=== PATIENT | male | born 1960 | race American Indian/Alaskan Native ===

== ENCOUNTER 2021-01-23 19:26 | Inpatient (IN) | payer OTHER ==
[2021-01-23] MEDS ORDERED: ASPIRIN 325 MG TAB PO ONE (21:46)
[2021-01-23] MEDS ORDERED: CLOPIDOGREL 300 MG TAB PO ONE (21:51)
[2021-01-23] MEDS ORDERED: HEPARIN 10,000 UNITS/10 ML VIAL IV ONE ×2 (21:51→23:20)
--- NOTE | 2021-01-23 21:58 | Emergency Department Report ---
ED Chest Pain HPI - General Chief Complaint: Chest Pain Stated Complaint: CHEST PAIN Time Seen by Provider: 01/23/21 21:45 Source: patient Mode of arrival: Ambulatory Limitations: No Limitations - History of Present Illness Initial Comments: 60-year-old male with a past medical history of tobacco use presents to the hospital complaining of chest tightness with radiation down both arms since 11 AM. Tightness started while at rest with associated nausea and lightheadedness. No complaints of shortness of breath or diaphoresis. Patient presented here about 7 PM but left a well home prior to triage. Upon to returning home pain increased to a 7/10 in intensity with pain radiation down the left arm therefore patient returned to the ED for evaluation. Pain is currently rated 4/10 in intensity. Patient states his last stress test was greater than 5 years ago and he has never had a cardiac cath. He denies any past medical history but has not seen a doctor in 1.5 years. He denies family history of CAD before the age of 65. He drinks 2-3 beers daily but denies history of alcohol withdrawal seizures or tremors. He denies illicit drug abuse. He also denies history of PE/DVT, calf tenderness, recent travel, or leg edema. - Related Data Allergies Allergy/AdvReac Type Severity Reaction Status Date / Time No Known Allergies Allergy Verified 01/23/21 22:07 Heart Score - HEART Score History: Moderately suspicious EKG: Non-specific Age: 45-65 Risk factors: 1-2 risk factors Troponin: 1-3x normal limit HEART Score: 5 ED Review of Systems ROS: Stated complaint: CHEST PAIN Other details as noted in HPI Comment: All other systems reviewed and negative ED Past Medical Hx - Past Medical History Hx Hypertension: No - Social History Smoking Status: Current Every Day Smoker Substance Use Type: Alcohol (2-3 beers daily) ED Physical Exam - General Limitations: No Limitations - Other Other exam information: General: No acute distress Head: Atraumatic Eyes: normal appearance ENT: Moist mucous membranes Neck: Normal appearance, no midline tenderness Chest: Clear to auscultation bilaterally, chest wall nontender CV: Regular rate and rhythm Abdomen: Soft, normal bowel sounds, nontender, nondistended, no rebound or guarding Back: Normal inspection Extremity: Normal inspection, full range of motion, no calf tenderness or leg edema Neuro: Alert O x 3, no facial asymmetry, speech clear, no gross motor sensory deficit Psych: Appropriate behavior Skin: No rash, no diaphoresis ED Course Vital Signs 01/23/21 01/23/21 01/23/21 21:44 21:45 22:00 Temperature Pulse Rate 68 70 71 Respiratory 11 L 13 9 L Rate Blood Pressure 174/105 179/106 O2 Sat by Pulse 99 99 99 Oximetry 01/23/21 01/23/21 01/23/21 22:02 22:09 22:15 Temperature Pulse Rate 85 83 80 Respiratory 16 13 Rate Blood Pressure 144/95 152/95 O2 Sat by Pulse 99 98 Oximetry 01/23/21 01/24/21 01/24/21 22:30 00:30 00:53 Temperature 98.6 F Pulse Rate 82 89 Respiratory 9 L Rate Blood Pressure 136/82 161/97 O2 Sat by Pulse 97 Oximetry - Reevaluation(s) Reevaluation #1: 01/23/21 22:19 Patient pain-free after 2 sublingual nitroglycerin with improved systolic blood pressure of 140s. Nitroglycerin drip on hold for recurrent chest pain or recurrent hypertension - Consultations Consultation #1: 01/23/21 21:50 Patient brought back immediately upon EKG review and interview since he had not been completely triage. After my initial evaluation I contacted the cognos consultant Dr Kelley at 9:50 PM who agreed that code STEMI should be called. Patient will receive Plavix 600 mg, heparin bolus, aspirin, and prepped for Orthotics Assistant. Code STEMI initiated. BRET score - Bret Score Age > 65: (0) No Aspirin use within the Past 7 Days: (0) No 3 or more CAD Risk Factors: (0) No 2 or more Angina events in past 24 hrs: (1) Yes Known CAD with more than 50% Stenosis: (0) No Elevated Cardiac Markers: (1) Yes ST Deviation Greater than 0.5mm: (1) Yes BRET Score: 3 ED Medical Decision Making - Lab Data Result diagrams: 01/24/21 00:43 01/23/21 Unknown - EKG Data -: EKG Interpreted by Me EKG shows normal: sinus rhythm, ST-T waves (Mild inferior anterolateral ST elevation) Rate: normal - Radiology Data Radiology results: report reviewed CHEST 1 VIEW 01/23/2021 9:01 PM INDICATION / CLINICAL INFORMATION: Chest Pain. COMPARISON: None available. FINDINGS: SUPPORT DEVICES: None. HEART / MEDIASTINUM: No significant abnormality. LUNGS / PLEURA: No significant pulmonary or pleural abnormality. No pneumothorax. ADDITIONAL FINDINGS: No significant additional findings. IMPRESSION: No acute cardiopulmonary abnormality. - Medical Decision Making 60-year male presents to the hospital with chest pain. Suspect unstable angina/acute coronary syndrome and Orthotics Assistant was activated. Patient received aspirin, Plavix, heparin bolus, and to sublingual nitroglycerin with improvement of blood pressure and chest pain Critical Care Time: Yes Critical care time in (mins) excluding proc time.: 35 Critical care attestation.: If time is entered above; I have spent that time in minutes in the direct care of this critically ill patient, excluding procedure time. ED Disposition Clinical Impression: Acute coronary syndrome, Elevated blood pressure reading, Hyperglycemia, STEMI (ST elevation myocardial infarction) Disposition: DC-[id number] OP ADMIT IP TO THIS HOSP Is pt being admited?: Yes Condition: Stable
[2021-01-23] MEDS: NITROGLYCERIN 0.4 MG TAB SUBL SL PRN ×2 (22:00→22:09)
[2021-01-23] MEDS ORDERED: NITROGLYCERIN DRIP 50 MG/250 ML BOTTLE IV SCH (22:05)
--- NOTE | 2021-01-23 22:06 | XRay Report ---
CHEST 1 VIEW 01/23/2021 9:01 PM INDICATION / CLINICAL INFORMATION: Chest Pain. COMPARISON: None available. FINDINGS: SUPPORT DEVICES: None. HEART / MEDIASTINUM: No significant abnormality. LUNGS / PLEURA: No significant pulmonary or pleural abnormality. No pneumothorax. ADDITIONAL FINDINGS: No significant additional findings. IMPRESSION: No acute cardiopulmonary abnormality. Signer Name: Lloyd Plummer MD Signed: 01/23/2021 10:02 PM Workstation Name: [id number]
[2021-01-23 22:07] LABS: Basophils % (Auto) 0.3 % (0.0-1.8); Eosinophils # (Auto) 0.1 K/mm3 (0.0-0.4); Eosinophils % (Auto) 2.1 % (0.0-4.3); Hematocrit 46.7 % (35.5-45.6); Hemoglobin 15.5 gm/dl (11.8-15.2); Lymphocytes # (Auto) 2.3 K/mm3 (1.2-5.4); Lymphocytes % (Auto) 33.1 % (13.4-35.0); Mean Corpuscular HGB Conc 33 % (32-34); Mean Corpuscular Volume 93 fl (84-94); Monocytes # (Auto) 0.6 K/mm3 (0.0-0.8); Monocytes % (Auto) 7.9 % (0.0-7.3); Platelet Count 206 K/mm3 (140-440); Red Blood Count 5.04 M/mm3 (3.65-5.03); Red Cell Distribution Width 12.4 % (13.2-15.2)
[2021-01-23 22:18] LABS: INR 1.03 (0.87-1.13)
[2021-01-23 22:19] LABS: Partial Thromboplastin Time 35.7 Sec. (24.2-36.6)
[2021-01-23 22:21] LABS: BUN/Creatinine Ratio 12; Blood Urea Nitrogen 12 mg/dL (9-20); Calcium 9.3 mg/dL (8.4-10.2); Hemolysis Index 8
[2021-01-23 22:23] LABS: Creatine Kinase MB 7.4 ng/mL (0.0-4.0)
[2021-01-23] MEDS ORDERED: HEPARIN/NS 5000 UNIT/500ML 1,000 ML IR ONE (22:27)
[2021-01-23] MEDS ORDERED: MIDAZOLAM 2 MG/2 ML INJ ONE (22:28)
[2021-01-23] MEDS ORDERED: fentaNYL 100 MCG/2 ML INJ ONE (22:28)
[2021-01-23] MEDS ORDERED: VERAPAMIL 5 MG/2 ML INJ ONE (22:28)
[2021-01-23] MEDS ORDERED: HEPARIN 10,000 UNITS/10 ML VIAL ONE (22:28)
[2021-01-23] MEDS ORDERED: LIDOCAINE (2%) 20 MG/1 ML VIAL 20 ML MDV INFILTRATI ONE ×2 (22:28→22:54)
[2021-01-23] MEDS ORDERED: TIROFIBAN/NS 12,500 MCG/250 ML BAG IV ONE (22:29)
[2021-01-23] MEDS ORDERED: SODIUM CHLORIDE 0.9% 500 ML 500 ML ONE (22:29)
[2021-01-23] MEDS ORDERED: NITROGLYCERIN SYRINGE 3 ML ONE (22:29)
[2021-01-23 22:41] LABS: Chol/HDL Ratio 5.17 %
[2021-01-23] MEDS ORDERED: fentaNYL 100 MCG/2 ML INJ IV ONE (22:53)
[2021-01-23] MEDS ORDERED: MIDAZOLAM 2 MG/2 ML INJ IV ONE (22:53)
[2021-01-23] MEDS ORDERED: HEPARIN 10,000 UNIT/1 ML VIAL IV ONE (23:01)
[2021-01-23] MEDS ORDERED: TIROFIBAN 12.5 MG/250 ML BOLUS (50 MCG/ML) IV ONE (23:07)
[2021-01-23] MEDS ORDERED: HEPARIN 2,000 UNIT in SODIUM CHLORIDE 0.9% 500 ML 500 ML IR ONE (23:08)
[2021-01-23] MEDS ORDERED: NITROGLYCERIN 600 MCG/3 ML SYRINGE INTRA-CORO ONE (23:11)
[2021-01-23] MEDS ORDERED: DEXTROSE 50% IN WATER (25GM) 50 ML SYRINGE IV PRN (23:11)
[2021-01-23] MEDS ORDERED: TIROFIBAN/NS 12.5 MG/250 ML DRIP IV ONE (23:12)
[2021-01-23] MEDS ORDERED: ONDANSETRON 4 MG/2 ML INJ IV PRN (23:13)
[2021-01-23] MEDS ORDERED: MORPHINE 2 MG/1 ML INJ IV PRN (23:13)
[2021-01-23] MEDS ORDERED: ACETAMINOPHEN 650 MG RECT SUPP PR PRN (23:15)
[2021-01-23] MEDS: TIROFIBAN/NS 12,500 MCG/250 ML BAG IV SCH (23:22)
[2021-01-23] MEDS ORDERED: SODIUM CHLORIDE 0.9% 1000 ML 1,000 ML IV SCH (23:45)
[2021-01-23] MEDS ORDERED: HYDROcodone/ACETAMINOPHEN 5-325 MG TAB PO PRN (23:45)
[2021-01-23] MEDS ORDERED: HEPARIN 10,000 UNITS/10 ML VIAL IV PRN (23:45)
--- NOTE | 2021-01-23 23:48 | Cardiac Catherization Report ---
CARDIAC CATHETERIZATION AND CORONARY ANGIOPLASTY REPORT REASON FOR PROCEDURE: The patient is a 60-year-old man, no prior cardiac history, presented to the hospital with several hours of intermittent chest pain. The ECG appeared consistent with acute anterolateral wall ST elevation myocardial infarction. Emergency cardiac catheterization protocol was activated. PROCEDURES: 1. Left heart catheterization. 2. Selective left and right coronary angiography. 3. Left ventricular angiography. 4. Coronary angioplasty and stenting of the mid left anterior descending artery. 5. Sedation time, start 2253 hours, end 2316 hours. The patient was prepped and draped in a sterile fashion after informed consent. Emergency cardiac catheterization consent protocol was used. I was present for the entire procedure and supervised the moderate sedation protocol. The right femoral artery was entered using Seldinger technique followed by placement of a 6-Irish sheath. Selective left and right coronary angiography was performed. A #4 right Maria R was used for right coronary angiography. The right Maria R was also used for left ventricular angiography. We then selected a #3.5 XB guiding catheter and advanced to the left coronary ostium and performed left coronary angiography. The angiograms were reviewed. CORONARY ANGIOGRAPHY: The left main coronary artery was free of significant disease. The left anterior descending artery contained evidence of an ulcerated plaque in the mid segment, with intraluminal haziness consistent with residual thrombus. More distally, the apical segment of the LAD was occluded, likely due to distal embolization from the mid vessel lesion. The circumflex artery and its obtuse marginal branches were free of significant disease. The right coronary artery was dominant. This vessel contained mild luminal irregularities of the proximal segment, followed by a 20-30% stenosis of the mid segment. Otherwise, the right coronary artery was free of significant disease. There was overall well preserved left ventricular systolic function, with ejection fraction estimated at 50-55%. CORONARY ANGIOPLASTY: We proceeded with ad hoc primary coronary intervention to the mid LAD stenosis. A 0.014 inch Ethernet Network Architect 50 guidewire was directed down into the LAD, across the lesional segment. Following wire placement, in a primary stenting maneuver, we deployed a 4.0 x 18 mm drug-eluting stent, covering the entire lesional segment of the mid vessel. Following stenting, there was an excellent angiographic result at the treated site, 0 residual stenosis and no residual intraluminal filling defects. Post-intervention, the distal thrombotic occlusion of the LAD in its distal apical segment was unchanged. We commenced aggressive intravenous antiplatelet therapy with Aggrastat, and the patient will be maintained on Aggrastat therapy to enhance distal LAD thrombus resolution. The catheters and the wires were removed, sheath removed, hemostasis achieved using an Angio-Seal device. The patient was returned to the postprocedure unit in stable condition. There were no complications. CONCLUSION: 1. The patient presented with an acute anterolateral wall ST elevation myocardial infarction. 2. Ulcerated mid LAD plaque with associated residual thrombus was the infarct-related lesion. 3. Well preserved left ventricular systolic function with ejection fraction estimated at 50-55%. 4. Successful primary angioplasty and stenting of the mid LAD with deployment of a 4.0 x 18 mm drug-eluting stent. 5. Pre-procedure distal embolic occlusion of the apical segment of the LAD will be managed with intravenous anticoagulant and intravenous antiplatelet therapy. [facility]# [id number] [place]
--- NOTE | 2021-01-23 23:57 | Consultation ---
History of Present Illness Consult date: 01/23/21 Consult reason: chest pain, other (Acute IL) History of present illness: Patient is a 60-year-old man who presented to the hospital with chest pain, ECG consistent with acute anterolateral ST elevation myocardial infarction. He was taken emergently to the cardiac catheterization laboratory, where we found a hazy ulcerated plaque in the mid segment of the LAD associated with significant residual thrombus. In addition, the distal, apical segment of the LAD was occluded by distal thrombus embolization. We performed successful implantation of a 4.0 x 18 mm drug-eluting stent with stabilization of the primary lesion in the mid LAD, with an excellent angiographic result, 0 residual stenosis. There was BRET grade III flow through the vessel but persistent occlusion of the distal apical segment. The patient will be placed on intravenous anticoagulant and intravenous antiplatelet therapy to enhance the resolution of the distal embolic LAD occlusion. Left ventricle angiography showed well-preserved left ventricular systolic function with ejection fraction estimated at 50 to 55%. At the conclusion of the procedure, he was chest pain-free, comfortable in no acute distress, transferred to the CCU for post IL management. Past History Past Medical History: other (No prior cardiac history) Medications and Allergies Allergies Allergy/AdvReac Type Severity Reaction Status Date / Time No Known Allergies Allergy Verified 01/23/21 22:07 Active Meds: Active Medications Acetaminophen (Acetaminophen 650 Mg Rect Supp) 650 mg OR Q4H PRN PRN Reason: Headache Dextrose (Dextrose 50% In Water (25gm) 50 Ml Syringe) 50 ml IV Q30MIN PRN; Protocol PRN Reason: Hypoglycemia Insulin Human Regular (Insulin Regular, Human 100 Units/1 Ml) 0 units SUB-Q Q4H JENNA; Protocol Morphine Sulfate (Morphine 2 Mg/1 Ml Inj) 2 mg IV Q3H PRN PRN Reason: Pain, Moderate (4-6) Nitroglycerin (Nitroglycerin 0.4 Mg Tab Subl) 0.4 mg SL .Q5MIN PRN PRN Reason: Chest Pain Last Admin: 01/23/21 22:09 Dose: 0.4 mg Documented by: Ondansetron HCl (Ondansetron 4 Mg/2 Ml Inj) 4 mg IV Q8H PRN PRN Reason: Nausea And Vomiting Review of Systems Cardiovascular: chest pain, shortness of breath, no orthopnea, no palpitations, no rapid/irregular heart beat, no edema, no syncope, no lightheadedness Physical Examination Vital Signs Pulse Resp Pulse Ox 68 11 L 99 01/23/21 21:44 01/23/21 21:44 01/23/21 21:44 General appearance: no acute distress HEENT: Positive: PERRL Neck: Positive: neck supple Cardiac: Positive: Reg Rate and Rhythm Lungs: Positive: clear to auscultation Neuro: Positive: Grossly Intact Abdomen: Positive: Soft Male genitourinary: Positive: deferred Skin: Positive: Clear Extremities: Absent: edema Results 01/23/21 Unknown 01/23/21 Unknown Cardiac Enzymes 01/23/21 Range/Units Unknown CK-MB (CK-2) 7.4 H (0.0-4.0) ng/mL Coagulation 01/23/21 Range/Units Unknown PT 13.4 (12.2-14.9) Sec. INR 1.03 (0.87-1.13) APTT 35.7 (24.2-36.6) Sec. Lipids 01/23/21 Range/Units Unknown Triglycerides 246 H (2-149) mg/dL Cholesterol 238 H (50-199) mg/dL HDL Cholesterol 46 (40-59) mg/dL Cholesterol/HDL Ratio 5.17 % CBC 01/23/21 Range/Units Unknown WBC 7.0 (4.5-11.0) K/mm3 RBC 5.04 H (3.65-5.03) M/mm3 Hgb 15.5 H (11.8-15.2) gm/dl Hct 46.7 H (35.5-45.6) % Plt Count 206 (140-440) K/mm3 Lymph # (Auto) 2.3 (1.2-5.4) K/mm3 [place] # (Auto) 0.6 (0.0-0.8) K/mm3 Eos # (Auto) 0.1 (0.0-0.4) K/mm3 Baso # (Auto) 0.0 (0.0-0.1) K/mm3 Comprehensive Metabolic Panel 01/23/21 Range/Units Unknown Sodium 137 (137-145) mmol/L Potassium 4.4 (3.6-5.0) mmol/L Chloride 97.2 L (98-107) mmol/L Carbon Dioxide 29 (22-30) mmol/L BUN 12 (9-20) mg/dL Creatinine 1.0 (0.8-1.3) mg/dL Glucose 337 H (75-100) mg/dL Calcium 9.3 (8.4-10.2) mg/dL EKG interpretations - Telemetry EKG Rhythm: Sinus Rhythm (With anterolateral ST elevation myocardial infarction) Assessment and Plan - Patient Problems (1) ST elevation myocardial infarction (STEMI) of anterolateral wall Current Visit: Yes Status: Acute Plan to address problem: Status post emergency cardiac catheterization with successful coronary stenting of the mid LAD. The patient will be admitted to the CCU, and placed on intravenous anticoagulant and intravenous antiplatelet therapy to enhance resolution of distal LAD occlusion from preprocedure thrombus embolization.
[2021-01-24] MEDS: HEPARIN/ 0.45% NACL DRIP 25,000 UNIT/500 ML BAG IV SCH ×2 (00:45→21:23)
[2021-01-24] MEDS: METOPROLOL TARTRATE 50 MG TAB PO SCH ×4 (00:53→19:31)
[2021-01-24 01:03] LABS: Hematocrit 42.3 % (35.5-45.6); Hemoglobin 14.3 gm/dl (11.8-15.2)
[2021-01-24 01:12] LABS: INR 1.13 (0.87-1.13)
[2021-01-24] MEDS ORDERED: ASPIRIN EC 325 MG TAB PO ONE (01:15)
[2021-01-24] MEDS ORDERED: HEPARIN 10,000 UNITS/10 ML VIAL ONE (01:15)
[2021-01-24] MEDS ORDERED: NITROGLYCERIN 0.4 MG TAB SUBL SL ONE (01:15)
[2021-01-24] MEDS ORDERED: CLOPIDOGREL 300 MG TAB ONE (01:15)
[2021-01-24 01:35] LABS: Partial Thromboplastin Time 142.3 Sec. (24.2-36.6)
[2021-01-24] MEDS: INSULIN REGULAR, HUMAN 100 UNITS/1 ML SUB-Q SCH ×6 (03:56→21:24)
--- NOTE | 2021-01-24 04:36 | XRay Report ---
CHEST 1 VIEW INDICATION: post pci COMPARISON: One day prior. FINDINGS: Support devices: None Heart: Normal and unchanged Lungs/Pleura: No acute pulmonary or pleural findings. IMPRESSION: 1. No acute disease and no interval change. Signer Name: Nelson Healy MD Signed: 01/24/2021 4:32 AM Workstation Name: [id number]
--- NOTE | 2021-01-24 05:55 | History and Physical Report ---
History of Present Illness Date of examination: 01/23/21 Date of admission: 01/23/21 22:30 Chief complaint: Chief complaint is chest pain History of present illness: History of presenting illness, patient is a 60-year-old male who started having tightness in the retrosternal and precordial area of the chest yesterday morning, pain radiates down to both upper extremities and was associated with nausea but no vomiting, also pain was associated with dizziness. Patient denied history of shortness of breath, fever or chills, cough. Patient left hospital emergency room initially after presentation before 3 and went home but started experiencing another bout of severe pain and came back and was found to have STEMI and was sent directly to the cardiac [facility] for further management. Past History Past Medical History: other (No prior cardiac history) Past Surgical History: No surgical history Social history: smoking, alcohol abuse Family history: no significant family history Medications and Allergies Allergies Allergy/AdvReac Type Severity Reaction Status Date / Time No Known Allergies Allergy Verified 01/23/21 22:07 Active Meds: Active Medications Acetaminophen (Acetaminophen 650 Mg Rect Supp) 650 mg MI Q4H PRN PRN Reason: Headache Hydrocodone Bitart/Acetaminophen (Hydrocodone/Acetaminophen 5-325 Mg Tab) 1 each PO Q6H PRN PRN Reason: Pain, Moderate (4-6) Aspirin (Aspirin Ec 325 Mg Tab) 325 mg PO QDAY JENNA Atorvastatin Calcium (Atorvastatin 40 Mg Tab) 40 mg PO QHS JENNA Clopidogrel Bisulfate (Clopidogrel 75 Mg Tab) 75 mg PO QDAY JENNA Dextrose (Dextrose 50% In Water (25gm) 50 Ml Syringe) 50 ml IV Q30MIN PRN; Protocol PRN Reason: Hypoglycemia Heparin Sodium (Porcine) (Heparin 10,000 Units/10 Ml Vial) 4,000 unit 40 unit/kg (4000 unit) IV Q6H PRN PRN Reason: Anti-Xa Assay<0.1 units/ml Sodium Chloride (Nacl 0.9% 1000 Ml) 1,000 mls @ 100 mls/hr IV DIRECT JENNA Stop: 01/24/21 11:44 Last Admin: 01/24/21 00:29 Dose: 100 mls/hr Documented by: Heparin Sodium/Sodium Chloride (Heparin/ 0.45% Nacl-25,000 Unit/500 Ml) 25,000 unit in 500 mls @ 20 mls/hr IV TITRATE JENNA; Protocol Last Admin: 01/24/21 00:45 Dose: 1,000 units/hr, 20 mls/hr Documented by: Tirofiban/Sodium Chloride (Aggrastat Drip (12.5 Mg/250 Ml)) 12,500 mcg in 250 mls @ 18 mls/hr IV DIRECT JENNA; Protocol Stop: 01/25/21 23:44 Last Admin: 01/23/21 23:22 Dose: 21.45 mls/hr Documented by: Insulin Human Regular (Insulin Regular, Human 100 Units/1 Ml) 0 units SUB-Q Q4H JENNA; Protocol Last Admin: 01/24/21 05:25 Dose: 5 units Documented by: Isosorbide Mononitrate (Isosorbide Mononitrate Er 30 Mg Tab) 30 mg PO QDAY JENNA Lisinopril (Lisinopril 5 Mg Tab) 5 mg PO QDAY JENNA Metoprolol Tartrate (Metoprolol Tartrate 50 Mg Tab) 50 mg PO BID JENNA Last Admin: 01/24/21 00:53 Dose: 50 mg Documented by: Morphine Sulfate (Morphine 2 Mg/1 Ml Inj) 2 mg IV Q3H PRN PRN Reason: Pain, Moderate (4-6) Nitroglycerin (Nitroglycerin 0.4 Mg Tab Subl) 0.4 mg SL .Q5MIN PRN PRN Reason: Chest Pain Last Admin: 01/23/21 22:09 Dose: 0.4 mg Documented by: Ondansetron HCl (Ondansetron 4 Mg/2 Ml Inj) 4 mg IV Q8H PRN PRN Reason: Nausea And Vomiting Review of Systems Constitutional: no fever, no chills, no sweats, no night sweats, no fatigue, no weakness, no malaise Eyes: bilateral: other (NO BILATERAL EYE SYMPTOMS) Ears, nose, mouth and throat: no ear pain Cardiovascular: chest pain, lightheadedness, no palpitations, no rapid/irregular heart beat, no syncope, no shortness of breath Respiratory: no cough, no cough with sputum, no excessive sputum, no hemoptysis, no shortness of breath, no dyspnea on exertion, no congestion, no wheezing, no pleurisy Gastrointestinal: nausea, no abdominal pain, no vomiting, no diarrhea, no constipation Genitourinary Male: no hematuria, no flank pain, no discharge Rectal: no pain Musculoskeletal: no neck stiffness, no neck pain Integumentary: no rash, no pruritis, no redness, no growths Neurological: no head injury, no paralysis, no weakness, no parathesias, no numbness, no tingling, no vertigo, no headaches Psychiatric: no anxiety, no depression, no anxiety attacks Endocrine: no polydipsia, no polyuria, no nocturia Allergic/Immunologic: no urticaria Exam - Constitutional Vitals: Temp Pulse Resp BP Pulse Ox 98.6 F 58 L 9 L 161/97 97 01/24/21 00:30 01/24/21 04:00 01/23/21 22:30 01/24/21 00:53 01/23/21 22:30 General appearance: Present: mild distress - EENT Eyes: Present: PERRL, EOM intact ENT: hearing intact, clear oral mucosa, dentition normal - Neck Neck: Present: supple, normal ROM - Respiratory Respiratory effort: normal - Cardiovascular Rhythm: regular Heart Sounds: Present: S1 & S2. Absent: systolic murmur, diastolic murmur, click - Extremities Extremities: no ischemia, No edema Peripheral Pulses: within normal limits - Abdominal General gastrointestinal: Present: soft, non-tender, non-distended. Absent: tender, distended, rigid, normal bowel sounds, hepatomegaly, splenomegaly Male genitourinary: Present: deferred - Rectal Rectal Exam: deferred - Integumentary Integumentary: Present: clear, warm, dry. Absent: jaundice - Musculoskeletal Musculoskeletal: generalized weakness - Psychiatric Psychiatric: appropriate mood/affect HEART Score - HEART Score EKG: Non-specific Age: 45-65 Risk factors: 1-2 risk factors Troponin: Troponin T 0.131 ng/mL (0.00-0.029) H* D 01/24/21 00:43 Troponin: 1-3x normal limit - Critical Actions Critical Actions: 4-6 pts:12-16.6% risk of adverse cardiac event. Should be adm itted (PATIENT IS BEING EVALUATED FOR CAD) Results - Labs CBC & Chem 7: 01/24/21 00:43 01/23/21 Unknown Labs: Laboratory Last Values WBC 7.0 K/mm3 (4.5-11.0) 01/23/21 Unknown RBC 5.04 M/mm3 (3.65-5.03) H 01/23/21 Unknown Hgb 14.3 gm/dl (11.8-15.2) 01/24/21 00:43 Hct 42.3 % (35.5-45.6) 01/24/21 00:43 MCV 93 fl (84-94) 01/23/21 Unknown MCH 31 pg (28-32) 01/23/21 Unknown MCHC 33 % (32-34) 01/23/21 Unknown RDW 12.4 % (13.2-15.2) L 01/23/21 Unknown Plt Count 188 K/mm3 (140-440) 01/24/21 00:43 Lymph % (Auto) 33.1 % (13.4-35.0) 01/23/21 Unknown [place] % (Auto) 7.9 % (0.0-7.3) H 01/23/21 Unknown Eos % (Auto) 2.1 % (0.0-4.3) 01/23/21 Unknown Baso % (Auto) 0.3 % (0.0-1.8) 01/23/21 Unknown Lymph # (Auto) 2.3 K/mm3 (1.2-5.4) 01/23/21 Unknown [place] # (Auto) 0.6 K/mm3 (0.0-0.8) 01/23/21 Unknown Eos # (Auto) 0.1 K/mm3 (0.0-0.4) 01/23/21 Unknown Baso # (Auto) 0.0 K/mm3 (0.0-0.1) 01/23/21 Unknown Seg Neutrophils % 56.6 % (40.0-70.0) 01/23/21 Unknown Seg Neutrophils # 4.0 K/mm3 (1.8-7.7) 01/23/21 Unknown PT 14.4 Sec. (12.2-14.9) 01/24/21 00:43 INR 1.13 (0.87-1.13) 01/24/21 00:43 APTT 142.3 Sec. (24.2-36.6) H* 01/24/21 00:43 Sodium 137 mmol/L (137-145) 01/23/21 Unknown Potassium 4.4 mmol/L (3.6-5.0) 01/23/21 Unknown Chloride 97.2 mmol/L (98-107) L 01/23/21 Unknown Carbon Dioxide 29 mmol/L (22-30) 01/23/21 Unknown Anion Gap 15 mmol/L 01/23/21 Unknown BUN 12 mg/dL (9-20) 01/23/21 Unknown Creatinine 1.0 mg/dL (0.8-1.3) 01/23/21 Unknown Estimated GFR > 60 ml/min 01/23/21 Unknown BUN/Creatinine Ratio 12 % 01/23/21 Unknown Glucose 337 mg/dL (75-100) H 01/23/21 Unknown POC Glucose 243 mg/dL (70-105) H 01/24/21 00:38 Calcium 9.3 mg/dL (8.4-10.2) 01/23/21 Unknown Total Creatine Kinase 184 units/L (55-170) H 01/23/21 Unknown CK-MB (CK-2) 7.4 ng/mL (0.0-4.0) H 01/23/21 Unknown CK-MB (CK-2) Rel Index 4.0 (0-4) 01/23/21 Unknown Troponin T 0.131 ng/mL (0.00-0.029) H* D 01/24/21 00:43 Triglycerides 246 mg/dL (2-149) H 01/23/21 Unknown Cholesterol 238 mg/dL (50-199) H 01/23/21 Unknown LDL Cholesterol Direct 178 mg/dL (50-130) H 01/23/21 Unknown HDL Cholesterol 46 mg/dL (40-59) 01/23/21 Unknown Cholesterol/HDL Ratio 5.17 % 01/23/21 Unknown Blood Type A POSITIVE 01/23/21 Unknown Antibody Screen Negative 01/23/21 Unknown [place]/IV: Voiding Method Urinal Assessment and Plan - Patient Problems (1) Hyperglycemia Current Visit: Yes Status: Acute Plan to address problem: 1. ACCUCHECKS 2. SLIDING SCALE INSULIN COVERAGE (2) STEMI (ST elevation myocardial infarction) Current Visit: Yes Status: Acute Plan to address problem: 1. MANAGMENT RECOMMENDATION PER CARDIOLOGY RECOMMENDATIONS 2. I.V MORPHINE FOR PAIN 3. I.V ZOFRAN FOR NAUSEA AND VOMITING 4. RECTAL TYLENOL FOR HEADACHE/FEVER 5. CONTINUE CARDIOLOGY CONSULT WITH THE RN PLASTIC SURGERY WHO DID THE CARDIAC CATH.
[2021-01-24 07:19] LABS: Basophils % (Auto) 0.7 % (0.0-1.8); Eosinophils # (Auto) 0.1 K/mm3 (0.0-0.4); Eosinophils % (Auto) 1.1 % (0.0-4.3); Hematocrit 43.8 % (35.5-45.6); Hemoglobin 14.7 gm/dl (11.8-15.2); Lymphocytes # (Auto) 1.9 K/mm3 (1.2-5.4); Mean Corpuscular HGB Conc 34 % (32-34); Mean Corpuscular Volume 91 fl (84-94); Monocytes # (Auto) 0.5 K/mm3 (0.0-0.8); Monocytes % (Auto) 7.9 % (0.0-7.3); Platelet Count 209 K/mm3 (140-440); Red Blood Count 4.83 M/mm3 (3.65-5.03); Red Cell Distribution Width 12.5 % (13.2-15.2)
[2021-01-24 07:33] LABS: BUN/Creatinine Ratio 11; Blood Urea Nitrogen 9 mg/dL (9-20); Calcium 8.8 mg/dL (8.4-10.2); Hemolysis Index 31
[2021-01-24] MEDS: ASPIRIN EC 325 MG TAB PO SCH (09:48)
[2021-01-24] MEDS: LISINOPRIL 5 MG TAB PO SCH (09:48)
[2021-01-24] MEDS: CLOPIDOGREL 75 MG TAB PO SCH (09:48)
--- NOTE | 2021-01-24 11:01 | Progress Note ---
Assessment and Plan - Patient Problems (1) ST elevation myocardial infarction (STEMI) of anterolateral wall Current Visit: Yes Status: Acute Plan to address problem: Patient is status post primary angioplasty and stenting of the mid LAD. There was extensive intraluminal thrombus that was also manifested by distal embolic occlusion of the LAD, currently on therapy with Aggrastat and low-dose intravenous heparin. We will continue current medical therapy. Subjective Date of service: 01/24/21 Interval history: Patient looks and feels better, no chest pain, no shortness of breath. On garment cutter, he has a normal sinus rhythm at 62. Blood pressure is 130 systolic. He is tolerating intravenous Aggrastat and low-dose intravenous heparin. Objective Vital Signs Temp Pulse Resp BP Pulse Ox 01/24/21 09:49 58 L 146/91 01/24/21 09:48 59 L 146/91 01/24/21 04:00 99.2 F 58 L 01/24/21 00:53 89 161/97 01/24/21 00:30 98.6 F 01/23/21 23:54 65 01/23/21 22:30 82 9 L 136/82 97 01/23/21 22:15 80 13 152/95 98 01/23/21 22:09 83 144/95 01/23/21 22:02 85 16 99 01/23/21 22:00 71 9 L 179/106 99 01/23/21 21:45 70 13 174/105 99 01/23/21 21:44 68 11 L 99 - Physical Examination HEENT: Positive: PERRL Neck: Positive: neck supple Cardiac: Positive: Reg Rate and Rhythm Lungs: Positive: clear to auscultation Neuro: Positive: Grossly Intact Abdomen: Positive: Soft Skin: Positive: Clear Extremities: Absent: edema - Labs and Meds Cardiac Enzymes 01/23/21 Range/Units Unknown CK-MB (CK-2) 7.4 H (0.0-4.0) ng/mL Coagulation 01/23/21 01/24/21 Range/Units Unknown 00:43 PT 13.4 14.4 (12.2-14.9) Sec. INR 1.03 1.13 (0.87-1.13) APTT 35.7 142.3 H* (24.2-36.6) Sec. Lipids 01/23/21 Range/Units Unknown Triglycerides 246 H (2-149) mg/dL Cholesterol 238 H (50-199) mg/dL HDL Cholesterol 46 (40-59) mg/dL Cholesterol/HDL Ratio 5.17 % CBC 01/23/21 01/24/21 01/24/21 Range/Units Unknown 00:43 06:59 WBC 7.0 5.8 (4.5-11.0) K/mm3 RBC 5.04 H 4.83 (3.65-5.03) M/mm3 Hgb 15.5 H 14.3 14.7 (11.8-15.2) gm/dl Hct 46.7 H 42.3 43.8 (35.5-45.6) % Plt Count 206 188 209 (140-440) K/mm3 Lymph # (Auto) 2.3 1.9 (1.2-5.4) K/mm3 Jay # (Auto) 0.6 0.5 (0.0-0.8) K/mm3 Eos # (Auto) 0.1 0.1 (0.0-0.4) K/mm3 Baso # (Auto) 0.0 0.0 (0.0-0.1) K/mm3 Comprehensive Metabolic Panel 01/23/21 01/24/21 Range/Units Unknown 06:59 Sodium 137 134 L (137-145) mmol/L Potassium 4.4 4.3 (3.6-5.0) mmol/L Chloride 97.2 L 101.3 (98-107) mmol/L Carbon Dioxide 29 23 (22-30) mmol/L BUN 12 9 (9-20) mg/dL Creatinine 1.0 0.8 (0.8-1.3) mg/dL Glucose 337 H 315 H (75-100) mg/dL Calcium 9.3 8.8 (8.4-10.2) mg/dL
--- NOTE | 2021-01-24 12:12 | Consultation ---
History of Present Illness - Reason for Consult Consult date: 01/24/21 STEMI Requesting physician: SADIE BARROS - History of Present Illness 60 y/o male admitted post PCI for chest pain. Currently on Dual Anti-platelet therapy. Chest pain free. Past History Past Medical History: other (No prior cardiac history) Past Surgical History: No surgical history Social history: smoking, alcohol abuse Family history: no significant family history Medications and Allergies Allergies Allergy/AdvReac Type Severity Reaction Status Date / Time No Known Allergies Allergy Verified 01/23/21 22:07 Active Meds: Active Medications Acetaminophen (Acetaminophen 650 Mg Rect Supp) 650 mg NM Q4H PRN PRN Reason: Headache Hydrocodone Bitart/Acetaminophen (Hydrocodone/Acetaminophen 5-325 Mg Tab) 1 each PO Q6H PRN PRN Reason: Pain, Moderate (4-6) Aspirin (Aspirin Ec 325 Mg Tab) 325 mg PO QDAY JENNA Last Admin: 01/24/21 09:48 Dose: 325 mg Documented by: Atorvastatin Calcium (Atorvastatin 40 Mg Tab) 40 mg PO QHS JENNA Clopidogrel Bisulfate (Clopidogrel 75 Mg Tab) 75 mg PO QDAY JENNA Last Admin: 01/24/21 09:48 Dose: 75 mg Documented by: Dextrose (Dextrose 50% In Water (25gm) 50 Ml Syringe) 50 ml IV Q30MIN PRN; Protocol PRN Reason: Hypoglycemia Heparin Sodium (Porcine) (Heparin 10,000 Units/10 Ml Vial) 4,000 unit 40 unit/kg (4000 unit) IV Q6H PRN PRN Reason: Anti-Xa Assay<0.1 units/ml Heparin Sodium/Sodium Chloride (Heparin/ 0.45% Nacl-25,000 Unit/500 Ml) 25,000 unit in 500 mls @ 20 mls/hr IV TITRATE JENNA; Protocol Last Admin: 01/24/21 00:45 Dose: 1,000 units/hr, 20 mls/hr Documented by: Tirofiban/Sodium Chloride (Aggrastat Drip (12.5 Mg/250 Ml)) 12,500 mcg in 250 mls @ 18 mls/hr IV DIRECT JENNA; Protocol Stop: 01/25/21 23:44 Last Infusion: 01/24/21 11:32 Dose: Infused Documented by: Insulin Glargine (Insulin Glargine 100 Units/Ml) 10 units SUB-Q QHS JENNA Insulin Human Regular (Insulin Regular, Human 100 Units/1 Ml) 0 units SUB-Q ACHS [facility]; Protocol Isosorbide Mononitrate (Isosorbide Mononitrate Er 30 Mg Tab) 30 mg PO QDAY [facility] Last Admin: 01/24/21 09:49 Dose: 30 mg Documented by: Lisinopril (Lisinopril 5 Mg Tab) 5 mg PO QDAY [facility] Last Admin: 01/24/21 09:48 Dose: 5 mg Documented by: Metoprolol Tartrate (Metoprolol Tartrate 50 Mg Tab) 25 mg PO Q8H [facility] Last Admin: 01/24/21 11:13 Dose: 25 mg Documented by: Morphine Sulfate (Morphine 2 Mg/1 Ml Inj) 2 mg IV Q3H PRN PRN Reason: Pain, Moderate (4-6) Nitroglycerin (Nitroglycerin 0.4 Mg Tab Subl) 0.4 mg SL .Q5MIN PRN PRN Reason: Chest Pain Last Admin: 01/23/21 22:09 Dose: 0.4 mg Documented by: Ondansetron HCl (Ondansetron 4 Mg/2 Ml Inj) 4 mg IV Q8H PRN PRN Reason: Nausea And Vomiting Review of Systems All systems: negative Exam - Constitutional Vitals: Temp Pulse Resp BP Pulse Ox 99.2 F 67 16 123/71 97 01/24/21 04:00 01/24/21 11:13 01/24/21 10:00 01/24/21 11:13 01/23/21 22:30 General appearance: Present: no acute distress - EENT Eyes: Present: PERRL, EOM intact ENT: hearing intact, clear oral mucosa, dentition normal - Neck Neck: Present: supple, normal ROM - Respiratory Respiratory effort: normal Respiratory: bilateral: CTA - Cardiovascular Rhythm: regular Heart Sounds: Present: S1 & S2 - Extremities Extremities: no ischemia - Abdominal General gastrointestinal: Present: soft, non-tender Male genitourinary: Present: deferred - Rectal Rectal Exam: deferred Results - Labs CBC & Chem 7: 01/24/21 06:59 01/24/21 06:59 Labs: Abnormal lab results 01/23/21 01/23/21 01/23/21 Range/Units Unknown Unknown Unknown RBC 5.04 H (3.65-5.03) M/mm3 Hgb 15.5 H (11.8-15.2) gm/dl Hct 46.7 H (35.5-45.6) % RDW 12.4 L (13.2-15.2) % [place] % (Auto) 7.9 H (0.0-7.3) % APTT (24.2-36.6) Sec. Heparin Anti-Xa Level (0.3-0.7) U.I./ml Sodium (137-145) mmol/L Chloride 97.2 L (98-107) mmol/L Glucose 337 H (75-100) mg/dL POC Glucose (70-105) mg/dL Total Creatine Kinase 184 H (55-170) units/L CK-MB (CK-2) 7.4 H (0.0-4.0) ng/mL Troponin T 0.057 H (0.00-0.029) ng/mL Triglycerides (2-149) mg/dL Cholesterol (50-199) mg/dL LDL Cholesterol Direct (50-130) mg/dL 01/23/21 01/24/21 01/24/21 Range/Units Unknown 00:38 00:43 RBC (3.65-5.03) M/mm3 Hgb (11.8-15.2) gm/dl Hct (35.5-45.6) % RDW (13.2-15.2) % [place] % (Auto) (0.0-7.3) % APTT 142.3 H* (24.2-36.6) Sec. Heparin Anti-Xa Level (0.3-0.7) U.I./ml Sodium (137-145) mmol/L Chloride (98-107) mmol/L Glucose (75-100) mg/dL POC Glucose 243 H (70-105) mg/dL Total Creatine Kinase (55-170) units/L CK-MB (CK-2) (0.0-4.0) ng/mL Troponin T (0.00-0.029) ng/mL Triglycerides 246 H (2-149) mg/dL Cholesterol 238 H (50-199) mg/dL LDL Cholesterol Direct 178 H (50-130) mg/dL 01/24/21 01/24/21 01/24/21 Range/Units 00:43 04:49 06:59 RBC (3.65-5.03) M/mm3 Hgb (11.8-15.2) gm/dl Hct (35.5-45.6) % RDW 12.5 L (13.2-15.2) % [place] % (Auto) 7.9 H (0.0-7.3) % APTT (24.2-36.6) Sec. Heparin Anti-Xa Level (0.3-0.7) U.I./ml Sodium (137-145) mmol/L Chloride (98-107) mmol/L Glucose (75-100) mg/dL POC Glucose 351 H (70-105) mg/dL Total Creatine Kinase (55-170) units/L CK-MB (CK-2) (0.0-4.0) ng/mL Troponin T 0.131 H* D (0.00-0.029) ng/mL Triglycerides (2-149) mg/dL Cholesterol (50-199) mg/dL LDL Cholesterol Direct (50-130) mg/dL 01/24/21 01/24/21 Range/Units 06:59 06:59 RBC (3.65-5.03) M/mm3 Hgb (11.8-15.2) gm/dl Hct (35.5-45.6) % RDW (13.2-15.2) % [place] % (Auto) (0.0-7.3) % APTT (24.2-36.6) Sec. Heparin Anti-Xa Level 0.26 L (0.3-0.7) U.I./ml Sodium 134 L (137-145) mmol/L Chloride (98-107) mmol/L Glucose 315 H (75-100) mg/dL POC Glucose (70-105) mg/dL Total Creatine Kinase (55-170) units/L CK-MB (CK-2) (0.0-4.0) ng/mL Troponin T 0.230 H* D (0.00-0.029) ng/mL Triglycerides (2-149) mg/dL Cholesterol (50-199) mg/dL LDL Cholesterol Direct (50-130) mg/dL - Imaging and Cardiology Chest x-ray: image reviewed (clear) Assessment and Plan 60 y/o male with chest pain, STEMI s/p PCI 1. Dual Antiplatelet therapy 2. Goal directed care for CAD 3. Cards requests patient stay in ICU or IMCU but no beds in step down.
--- NOTE | 2021-01-24 17:29 | Progress Note ---
<RAFFAELE CARO - Last Filed: 01/24/21 17:25> Assessment and Plan Assessment and plan: -S/p PCI with JIMBO to LAD -On Aggrastat and heparin drip -SSI -Hemoglobin A1c pending -Long-acting insulin -Aspirin, atorvastatin, Plavix, lisinopril, metoprolol -As needed nitroglycerin DVT/GI prophylaxis: Systemic anticoagulation with heparin, SCDs to bilateral ultrasound in bed, PPI Dispo: Cardiology request ICU History Interval history: This is a 60-year-old male who has current tobacco and EtOH abuse who presents to the emergency department on 01/23 with complaints of chest tightness with radiation down both arms since 11 AM on 01/23 associated with nausea and lightheadedness which was relieved after 2 sublingual nitroglycerin in the emergency department. EKG showed STEMI and he was taken to the [facility] with Dr. Kelley where they found a hazy ulcerated plaque in the mid segment of the LAD associated with significant residual thrombus and the distal and apical segment of the LAD were occluded by distal thrombus also. Patient is status post a drug-eluting stent to primary lesion in the mid LAD. The patient was placed on intravenous anticoagulant interventions antiplatelet therapy to enhance resolution of his distal embolic LAD lesion. Left ventricular angiography barbara wed preserved LV systolic function with ejection fraction of 50 to 55%. Patient was admitted to the hospital service with consult to cardiology and [facility]. NSTEMI Hyperglycemia Hypochloremia Pseudohyponatremia Tobacco abuse EtOH abuse 01/24: Patient remains on Aggrastat and heparin drip. Cardiology requests the patient stay in ICU. Patient says that he is is not have any chest pain, respiratory distress, nausea or vomiting. No acute events reported overnight. Hospitalist Physical - Constitutional Vitals: Temp Pulse Resp BP Pulse Ox 98 F 60 15 97/53 94 01/24/21 12:00 01/24/21 13:40 01/24/21 13:40 01/24/21 13:40 01/24/21 13:40 General appearance: Present: no acute distress - EENT Eyes: Present: PERRL, EOM intact ENT: hearing intact, clear oral mucosa - Neck Neck: Present: supple, normal ROM - Respiratory Respiratory effort: normal Respiratory: bilateral: CTA - Cardiovascular Rhythm: regular Heart Sounds: Present: S1 & S2. Absent: systolic murmur, diastolic murmur - Extremities Extremities: no ischemia, pulses intact, pulses symmetrical, No edema, normal temperature, normal color, Full ROM Peripheral Pulses: within normal limits - Abdominal General gastrointestinal: soft, non-tender, non-distended, normal bowel sounds - Integumentary Integumentary: Present: clear, warm, dry - Psychiatric Psychiatric: cooperative - Neurologic Neurologic: CNII-XII intact, no focal deficits, moves all extremities - Allied Health Allied health notes reviewed: nursing, PT, RT HEART Score - HEART Score EKG: Non-specific Age: 45-65 Risk factors: 1-2 risk factors Troponin: Troponin T 0.230 ng/mL (0.00-0.029) H* D 01/24/21 06:59 Troponin: 1-3x normal limit - Critical Actions Critical Actions: 4-6 pts:12-16.6% risk of adverse cardiac event. Should be admitted (PATIENT IS BEING EVALUATED FOR CAD) Results - Labs CBC & Chem 7: 01/24/21 06:59 01/24/21 06:59 Labs: Laboratory Last Values WBC 5.8 K/mm3 (4.5-11.0) 01/24/21 06:59 RBC 4.83 M/mm3 (3.65-5.03) 01/24/21 06:59 Hgb 14.7 gm/dl (11.8-15.2) 01/24/21 06:59 Hct 43.8 % (35.5-45.6) 01/24/21 06:59 MCV 91 fl (84-94) 01/24/21 06:59 MCH 31 pg (28-32) 01/24/21 06:59 MCHC 34 % (32-34) 01/24/21 06:59 RDW 12.5 % (13.2-15.2) L 01/24/21 06:59 Plt Count 209 K/mm3 (140-440) 01/24/21 06:59 Lymph % (Auto) 33.0 % (13.4-35.0) 01/24/21 06:59 [place] % (Auto) 7.9 % (0.0-7.3) H 01/24/21 06:59 Eos % (Auto) 1.1 % (0.0-4.3) 01/24/21 06:59 Baso % (Auto) 0.7 % (0.0-1.8) 01/24/21 06:59 Lymph # (Auto) 1.9 K/mm3 (1.2-5.4) 01/24/21 06:59 [place] # (Auto) 0.5 K/mm3 (0.0-0.8) 01/24/21 06:59 Eos # (Auto) 0.1 K/mm3 (0.0-0.4) 01/24/21 06:59 Baso # (Auto) 0.0 K/mm3 (0.0-0.1) 01/24/21 06:59 Seg Neutrophils % 57.3 % (40.0-70.0) 01/24/21 06:59 Seg Neutrophils # 3.3 K/mm3 (1.8-7.7) 01/24/21 06:59 PT 14.4 Sec. (12.2-14.9) 01/24/21 00:43 INR 1.13 (0.87-1.13) 01/24/21 00:43 APTT 142.3 Sec. (24.2-36.6) H* 01/24/21 00:43 Heparin Anti-Xa Level 0.26 U.I./ml (0.3-0.7) L 01/24/21 06:59 Sodium 134 mmol/L (137-145) L 01/24/21 06:59 Potassium 4.3 mmol/L (3.6-5.0) 01/24/21 06:59 Chloride 101.3 mmol/L (98-107) 01/24/21 06:59 Carbon Dioxide 23 mmol/L (22-30) 01/24/21 06:59 Anion Gap 14 mmol/L 01/24/21 06:59 BUN 9 mg/dL (9-20) 01/24/21 06:59 Creatinine 0.8 mg/dL (0.8-1.3) 01/24/21 06:59 Estimated GFR > 60 ml/min 01/24/21 06:59 BUN/Creatinine Ratio 11 % 01/24/21 06:59 Glucose 315 mg/dL (75-100) H 01/24/21 06:59 POC Glucose 316 mg/dL (70-105) H 01/24/21 12:37 Calcium 8.8 mg/dL (8.4-10.2) 01/24/21 06:59 Total Creatine Kinase 184 units/L (55-170) H 01/23/21 Unknown CK-MB (CK-2) 7.4 ng/mL (0.0-4.0) H 01/23/21 Unknown CK-MB (CK-2) Rel Index 4.0 (0-4) 01/23/21 Unknown Troponin T 0.230 ng/mL (0.00-0.029) H* D 01/24/21 06:59 Triglycerides 246 mg/dL (2-149) H 01/23/21 Unknown Cholesterol 238 mg/dL (50-199) H 01/23/21 Unknown LDL Cholesterol Direct 178 mg/dL (50-130) H 01/23/21 Unknown HDL Cholesterol 46 mg/dL (40-59) 01/23/21 Unknown Cholesterol/HDL Ratio 5.17 % 01/23/21 Unknown Blood Type A POSITIVE 01/23/21 Unknown Antibody Screen Negative 01/23/21 Unknown Saucedo/IV: Voiding Method Urinal Active Medications - Current Medications Current Medications: Generic Name Dose Route Start Last Admin Trade Name Freq PRN Reason Stop Dose Admin Acetaminophen 650 mg 01/23/21 23:15 Acetaminophen 650 Mg Rect Supp AR Q4H PRN Headache Hydrocodone Bitart/Acetaminophen 1 each 01/23/21 23:45 Hydrocodone/Acetaminophen 5-325 Mg Tab PO Q6H PRN Pain, Moderate (4-6) Aspirin 325 mg 01/24/21 10:00 01/24/21 09:48 Aspirin Ec 325 Mg Tab PO 325 mg QDAY JENNA Administration Atorvastatin Calcium 40 mg 01/24/21 22:00 Atorvastatin 40 Mg Tab PO QHS JENNA Clopidogrel Bisulfate 75 mg 01/24/21 10:00 01/24/21 09:48 Clopidogrel 75 Mg Tab PO 75 mg QDAY JENNA Administration Dextrose 50 ml 01/23/21 23:11 Dextrose 50% In Water (25gm) 50 Ml Syringe IV Q30MIN PRN Hypoglycemia Protocol Heparin Sodium (Porcine) 4,000 unit 01/23/21 23:45 Heparin 10,000 Units/10 Ml Vial 40 unit/kg (4000 unit) IV Q6H PRN Anti-Xa Assay<0.1 units/ml Heparin Sodium/Sodium Chloride 25,000 unit in 500 mls @ 20 mls/hr 01/23/21 23:45 01/24/21 00:45 Heparin/ 0.45% Nacl-25,000 Unit/500 Ml IV 1,000 units/hr TITRATE JENNA 20 mls/hr Administration Protocol 1,000 UNITS/HR Tirofiban/Sodium Chloride 12,500 mcg in 250 mls @ 18 mls/hr 01/23/21 23:45 01/24/21 11:32 Aggrastat Drip (12.5 Mg/250 Ml) IV 01/25/21 23:44 Infused DIRECT JENNA Infusion Protocol Per Protocol Insulin Glargine 10 units 01/24/21 22:00 Insulin Glargine 100 Units/Ml SUB-Q QHS JENNA Insulin Human Regular 0 units 01/24/21 11:30 01/24/21 12:30 Insulin Regular, Human 100 Units/1 Ml SUB-Q 8 units ACHS JENNA Administration Protocol Isosorbide Mononitrate 30 mg 01/24/21 10:00 01/24/21 09:49 Isosorbide Mononitrate Er 30 Mg Tab PO 30 mg QDAY JENNA Administration Lisinopril 5 mg 01/24/21 10:00 01/24/21 09:48 Lisinopril 5 Mg Tab PO 5 mg QDAY JENNA Administration Metoprolol Tartrate 25 mg 01/24/21 11:00 01/24/21 11:13 Metoprolol Tartrate 50 Mg Tab PO 25 mg Q8H JENNA Administration Morphine Sulfate 2 mg 01/23/21 23:13 Morphine 2 Mg/1 Ml Inj IV Q3H PRN Pain, Moderate (4-6) Nitroglycerin 0.4 mg 01/23/21 21:46 01/23/21 22:09 Nitroglycerin 0.4 Mg Tab Subl SL 0.4 mg .Q5MIN PRN Administration Chest Pain Ondansetron HCl 4 mg 01/23/21 23:13 Ondansetron 4 Mg/2 Ml Inj IV Q8H PRN Nausea And Vomiting Nutrition/Malnutrition Assess - Dietary Evaluation Nutrition/Malnutrition Findings: Nutrition Notes Start: 01/24/21 11:5 0 Freq: Status: Active Protocol: Document 01/24/21 11:50 CW (Rec: 01/24/21 12:01 CW [id number]) Nutrition Notes Need for Assessment generated from: renewals specialist,Education Initial or Follow up Brief Note Current Diagnosis Coronary Artery Disease Other Pertinent Diagnosis Hyperglycemia, STEMI Current Diet Cardiac Consistent Carbohydrate Diet Labs/Tests Na 134 BG 337 (on admission) TG 246 chol 248 LDL 178 Pertinent Medications Reviewed Height 6 ft 6 in Weight 101.4 kg [place] Body Weight (kg) 97.27 BMI 25.8 Weight Status Appropriate Subjective/Other Information RN screen for diet education realted to hyperglycemia. Pt has stated wanting to use nutritional therapy rather than medication. Attempted diet education however pt stated not wanting to discuss at this time. Handout left with pt. #1 Nutrition Diagnosis Food and nutrition-related knowledge deficit Etiology no previous knowledge regarding how carbohydrates affect diet As Evidenced by Signs and Symptoms Pt reported wanting to know about ways to monitor carbohydrate choices Nutrition Intervention Change Diet Order: Continue Cardiac Consistent Carbohydrate diet Teaching Recipient Patient Learning Readiness Fair Teaching Methods Handout Response to Teaching Reinforcement needed Education Handouts Provided Counting Carbohydrates for people with diabetes RD phone number provided Yes Patient aware of follow up options Yes Goal #1 Understand importance of counting carbohydrates Goal #2 Meet at least 75% of EER via PO Anticipated Discharge Needs: Cardiac Consistent Carbohydrate diet Follow-Up By: 01/25/21 Additional Comments F/U diet education and intakes <JOJO JIN E - Last Filed: 01/25/21 07:01> Assessment and Plan Assessment and plan: I saw and evaluated the patient. I agree with the findings and the plan of care as documented in the Nurse Practitioner's~note, with the following corrections and additions. Hospitalist Physical - Constitutional Vitals: Temp Pulse Resp BP Pulse Ox 99.3 F 74 10 L 117/60 98 01/25/21 03:28 01/25/21 06:46 01/25/21 06:46 01/25/21 06:46 01/25/21 06:46 HEART Score - HEART Score Troponin: Troponin T 0.230 ng/mL (0.00-0.029) H* D 01/24/21 06:59 Results - Labs CBC & Chem 7: 01/25/21 04:51 01/24/21 06:59 Labs: Laboratory Last Values WBC 5.8 K/mm3 (4.5-11.0) 01/24/21 06:59 RBC 4.83 M/mm3 (3.65-5.03) 01/24/21 06:59 Hgb 14.0 gm/dl (11.8-15.2) 01/25/21 04:51 Hct 41.5 % (35.5-45.6) 01/25/21 04:51 MCV 91 fl (84-94) 01/24/21 06:59 MCH 31 pg (28-32) 01/24/21 06:59 MCHC 34 % (32-34) 01/24/21 06:59 RDW 12.5 % (13.2-15.2) L 01/24/21 06:59 Plt Count 185 K/mm3 (140-440) 01/25/21 04:51 Lymph % (Auto) 33.0 % (13.4-35.0) 01/24/21 06:59 [place] % (Auto) 7.9 % (0.0-7.3) H 01/24/21 06:59 Eos % (Auto) 1.1 % (0.0-4.3) 01/24/21 06:59 Baso % (Auto) 0.7 % (0.0-1.8) 01/24/21 06:59 Lymph # (Auto) 1.9 K/mm3 (1.2-5.4) 01/24/21 06:59 [place] # (Auto) 0.5 K/mm3 (0.0-0.8) 01/24/21 06:59 Eos # (Auto) 0.1 K/mm3 (0.0-0.4) 01/24/21 06:59 Baso # (Auto) 0.0 K/mm3 (0.0-0.1) 01/24/21 06:59 Seg Neutrophils % 57.3 % (40.0-70.0) 01/24/21 06:59 Seg Neutrophils # 3.3 K/mm3 (1.8-7.7) 01/24/21 06:59 PT 14.4 Sec. (12.2-14.9) 01/24/21 00:43 INR 1.13 (0.87-1.13) 01/24/21 00:43 APTT 142.3 Sec. (24.2-36.6) H* 01/24/21 00:43 Heparin Anti-Xa Level 0.26 U.I./ml (0.3-0.7) L 01/24/21 06:59 Sodium 134 mmol/L (137-145) L 01/24/21 06:59 Potassium 4.3 mmol/L (3.6-5.0) 01/24/21 06:59 Chloride 101.3 mmol/L (98-107) 01/24/21 06:59 Carbon Dioxide 23 mmol/L (22-30) 01/24/21 06:59 Anion Gap 14 mmol/L 01/24/21 06:59 BUN 9 mg/dL (9-20) 01/24/21 06:59 Creatinine 0.8 mg/dL (0.8-1.3) 01/24/21 06:59 Estimated GFR > 60 ml/min 01/24/21 06:59 BUN/Creatinine Ratio 11 % 01/24/21 06:59 Glucose 315 mg/dL (75-100) H 01/24/21 06:59 POC Glucose 158 mg/dL (70-105) H 01/25/21 02:16 Hemoglobin A1c 14.7 % (4-6) H 01/25/21 04:51 Calcium 8.8 mg/dL (8.4-10.2) 01/24/21 06:59 Total Creatine Kinase 184 units/L (55-170) H 01/23/21 Unknown CK-MB (CK-2) 7.4 ng/mL (0.0-4.0) H 01/23/21 Unknown CK-MB (CK-2) Rel Index 4.0 (0-4) 01/23/21 Unknown Troponin T 0.230 ng/mL (0.00-0.029) H* D 01/24/21 06:59 Triglycerides 246 mg/dL (2-149) H 01/23/21 Unknown Cholesterol 238 mg/dL (50-199) H 01/23/21 Unknown LDL Cholesterol Direct 178 mg/dL (50-130) H 01/23/21 Unknown HDL Cholesterol 46 mg/dL (40-59) 01/23/21 Unknown Cholesterol/HDL Ratio 5.17 % 01/23/21 Unknown Blood Type A POSITIVE 01/23/21 Unknown Antibody Screen Negative 01/23/21 Unknown Saucedo/IV: Voiding Method Urinal Active Medications - Current Medications Current Medications: Generic Name Dose Route Start Last Admin Trade Name Freq PRN Reason Stop Dose Admin Acetaminophen 650 mg 01/23/21 23:15 Acetaminophen 650 Mg Rect Supp AR Q4H PRN Headache Acetaminophen 650 mg 01/24/21 18:09 01/24/21 18:16 Acetaminophen 325 Mg Tab PO 650 mg Q6H PRN Administration Pain, Mild (1-3) Hydrocodone Bitart/Acetaminophen 1 each 01/23/21 23:45 Hydrocodone/Acetaminophen 5-325 Mg Tab PO Q6H PRN Pain, Moderate (4-6) Aspirin 325 mg 01/24/21 10:00 01/24/21 09:48 Aspirin Ec 325 Mg Tab PO 325 mg QDAY JENNA Administration Atorvastatin Calcium 40 mg 01/24/21 22:00 01/24/21 21:21 Atorvastatin 40 Mg Tab PO 40 mg QHS JENNA Administration Clopidogrel Bisulfate 75 mg 01/24/21 10:00 01/24/21 09:48 Clopidogrel 75 Mg Tab PO 75 mg QDAY JENNA Administration Dextrose 50 ml 01/23/21 23:11 Dextrose 50% In Water (25gm) 50 Ml Syringe IV Q30MIN PRN Hypoglycemia Protocol Famotidine 40 mg 01/24/21 22:00 01/24/21 21:15 Famotidine 20 Mg Tab PO 40 mg QHS JENNA Administration Heparin Sodium (Porcine) 4,000 unit 01/23/21 23:45 Heparin 10,000 Units/10 Ml Vial 40 unit/kg (4000 unit) IV Q6H PRN Anti-Xa Assay<0.1 units/ml Heparin Sodium/Sodium Chloride 25,000 unit in 500 mls @ 20 mls/hr 01/23/21 23:45 01/24/21 21:23 Heparin/ 0.45% Nacl-25,000 Unit/500 Ml IV 1,000 units/hr TITRATE JENNA 20 mls/hr Administration Protocol 1,000 UNITS/HR Tirofiban/Sodium Chloride 12,500 mcg in 250 mls @ 18 mls/hr 01/23/21 23:45 01/24/21 21:07 Aggrastat Drip (12.5 Mg/250 Ml) IV 01/25/21 23:44 18 mls/hr DIRECT JENNA Administration Protocol Per Protocol Insulin Glargine 10 units 01/24/21 22:00 01/24/21 21:21 Insulin Glargine 100 Units/Ml SUB-Q 10 units QHS JENNA Administration Insulin Human Regular 0 units 01/24/21 11:30 01/24/21 21:24 Insulin Regular, Human 100 Units/1 Ml SUB-Q 10 units ACHS JENNA Administration Protocol Isosorbide Mononitrate 30 mg 01/24/21 10:00 01/24/21 09:49 Isosorbide Mononitrate Er 30 Mg Tab PO 30 mg QDAY JENNA Administration Lisinopril 5 mg 01/24/21 10:00 01/24/21 09:48 Lisinopril 5 Mg Tab PO 5 mg QDAY JENNA Administration Metoprolol Tartrate 25 mg 01/24/21 11:00 01/25/21 03:30 Metoprolol Tartrate 50 Mg Tab PO 25 mg Q8H JENNA Administration Morphine Sulfate 2 mg 01/23/21 23:13 Morphine 2 Mg/1 Ml Inj IV Q3H PRN Pain, Moderate (4-6) Nitroglycerin 0.4 mg 01/23/21 21:46 01/23/21 22:09 Nitroglycerin 0.4 Mg Tab Subl SL 0.4 mg .Q5MIN PRN Administration Chest Pain Ondansetron HCl 4 mg 01/23/21 23:13 Ondansetron 4 Mg/2 Ml Inj IV Q8H PRN Nausea And Vomiting Nutrition/Malnutrition Assess - Dietary Evaluation Nutrition/Malnutrition Findings: Nutrition Notes Start: 01/24/21 11:50 Freq: Status: Active Protocol: Document 01/24/21 11:50 CW (Rec: 01/24/21 12:01 CW [id number]) Nutrition Notes Need for Assessment generated from: renewals specialist,Education Initial or Follow up Brief Note Current Diagnosis Coronary Artery Disease Other Pertinent Diagnosis Hyperglycemia, STEMI Current Diet Cardiac Consistent Carbohydrate Diet Labs/Tests Na 134 BG 337 (on admission) TG 246 chol 248 LDL 178 Pertinent Medications Reviewed Height 6 ft 6 in Weight 101.4 kg [place] Body Weight (kg) 97.27 BMI 25.8 Weight Status Appropriate Subjective/Other Information RN screen for diet education realted to hyperglycemia. Pt has stated wanting to use nutritional therapy rather than medication. Attempted diet education however pt stated not wanting to discuss at this time. Handout left with pt. #1 Nutrition Diagnosis Food and nutrition-related knowledge deficit Etiology no previous knowledge regarding how carbohydrates affect diet As Evidenced by Signs and Symptoms Pt reported wanting to know about ways to monitor carbohydrate choices Nutrition Intervention Change Diet Order: Continue Cardiac Consistent Carbohydrate diet Teaching Recipient Patient Learning Readiness Fair Teaching Methods Handout Response to Teaching Reinforcement needed Education Handouts Provided Counting Carbohydrates for people with diabetes RD phone number provided Yes Patient aware of follow up options Yes Goal #1 Understand importance of counting carbohydrates Goal #2 Meet at least 75% of EER via PO Anticipated Discharge Needs: Cardiac Consistent Carbohydrate diet Follow-Up By: 01/25/21 Additional Comments F/U diet education and intakes
[2021-01-24] MEDS ORDERED: ACETAMINOPHEN 325 MG TAB ONE (18:10)
[2021-01-24] MEDS: ACETAMINOPHEN 325 MG TAB PO PRN (18:16)
[2021-01-24] MEDS: TIROFIBAN/NS 12,500 MCG/250 ML BAG IV SCH (21:07)
[2021-01-24] MEDS: FAMOTIDINE 20 MG TAB PO SCH (21:15)
[2021-01-24] MEDS ORDERED: INSULIN GLARGINE 100 UNITS/ML SUB-Q SCH (22:00)
[2021-01-25] MEDS: METOPROLOL TARTRATE 50 MG TAB PO SCH ×3 (03:30→18:27)
[2021-01-25 05:59] LABS: Hematocrit 41.5 % (35.5-45.6)
[2021-01-25] MEDS: INSULIN REGULAR, HUMAN 100 UNITS/1 ML SUB-Q SCH ×4 (08:26→22:21)
[2021-01-25] MEDS: CLOPIDOGREL 75 MG TAB PO SCH (10:01)
[2021-01-25] MEDS: ASPIRIN EC 325 MG TAB PO SCH (10:02)
[2021-01-25] MEDS: LISINOPRIL 5 MG TAB PO SCH (10:04)
--- NOTE | 2021-01-25 11:18 | Progress Note ---
Assessment and Plan 60 y/o male with chest pain, STEMI s/p PCI 01/25/21: Stable pulm status. Follow up cards recs. Hopeful transfer out today. 1. Dual Antiplatelet therapy 2. Goal directed care for CAD 3. Cards requests patient stay in ICU or IMCU but no beds in step down. Subjective Date of service: 01/25/21 Interval history: No acute events. Chest pain free. Objective - Constitutional Vitals: Vital Signs - 12hr 01/24/21 01/24/21 01/24/21 23:30 23:46 23:51 Temperature 98.8 F Pulse Rate 57 L 56 L Pulse Rate [ From Monitor] Respiratory 17 15 Rate Blood Pressure 107/57 100/48 O2 Sat by Pulse 95 98 Oximetry 01/25/21 01/25/21 01/25/21 00:00 00:16 00:30 Temperature Pulse Rate 56 L 60 66 Pulse Rate [ 61 From Monitor] Respiratory 16 11 L 11 L Rate Blood Pressure 100/48 113/70 120/66 O2 Sat by Pulse 98 98 99 Oximetry 01/25/21 01/25/21 01/25/21 00:46 01:00 01:16 Temperature Pulse Rate 68 67 63 Pulse Rate [ From Monitor] Respiratory 8 L 11 L 19 Rate Blood Pressure 120/66 120/57 120/57 O2 Sat by Pulse 98 97 94 Oximetry 01/25/21 01/25/21 01/25/21 01:30 01:46 02:00 Temperature Pulse Rate 61 63 62 Pulse Rate [ From Monitor] Respiratory 18 17 16 Rate Blood Pressure 102/57 102/57 106/64 O2 Sat by Pulse 96 97 96 Oximetry 01/25/21 01/25/21 01/25/21 02:16 02:30 02:46 Temperature Pulse Rate 65 62 64 Pulse Rate [ From Monitor] Respiratory 11 L 16 18 Rate Blood Pressure 106/64 110/56 110/56 O2 Sat by Pulse 99 95 96 Oximetry 01/25/21 01/25/21 01/25/21 03:00 03:16 03:26 Temperature 99.3 F Pulse Rate 65 62 Pulse Rate [ From Monitor] Respiratory 19 17 Rate Blood Pressure 106/58 106/58 O2 Sat by Pulse 97 97 Oximetry 01/25/21 01/25/21 01/25/21 03:28 03:30 03:46 Temperature 99.3 F Pulse Rate 74 78 Pulse Rate [ From Monitor] Respiratory 16 18 Rate Blood Pressure 117/60 105/64 O2 Sat by Pulse 97 98 Oximetry 01/25/21 01/25/21 01/25/21 04:00 04:16 04:30 Temperature Pulse Rate 61 65 71 Pulse Rate [ 60 From Monitor] Respiratory 16 7 L 18 Rate Blood Pressure 104/57 104/57 101/51 O2 Sat by Pulse 98 98 97 Oximetry 01/25/21 01/25/21 01/25/21 04:46 05:00 05:16 Temperature Pulse Rate 67 75 76 Pulse Rate [ From Monitor] Respiratory 18 12 10 L Rate Blood Pressure 101/51 101/51 121/64 O2 Sat by Pulse 96 97 96 Oximetry 01/25/21 01/25/21 01/25/21 05:30 05:46 06:00 Temperature Pulse Rate 64 63 76 Pulse Rate [ From Monitor] Respiratory 17 17 14 Rate Blood Pressure 121/60 121/60 121/60 O2 Sat by Pulse 97 93 Oximetry 01/25/21 01/25/21 01/25/21 06:16 06:30 06:46 Temperature Pulse Rate 77 72 74 Pulse Rate [ From Monitor] Respiratory 10 L 14 10 L Rate Blood Pressure 117/60 117/60 117/60 O2 Sat by Pulse 97 98 98 Oximetry 01/25/21 01/25/21 01/25/21 07:00 07:16 07:30 Temperature Pulse Rate 73 71 74 Pulse Rate [ From Monitor] Respiratory 15 11 L 11 L Rate Blood Pressure 117/60 123/77 123/77 O2 Sat by Pulse 96 97 98 Oximetry 01/25/21 01/25/21 01/25/21 07:46 08:00 08:16 Temperature 99.6 F Pulse Rate 94 H 65 70 Pulse Rate [ From Monitor] Respiratory 12 8 L 15 Rate Blood Pressure 123/77 126/66 126/66 O2 Sat by Pulse 96 97 98 Oximetry 01/25/21 01/25/21 01/25/21 08:30 08:46 09:00 Temperature Pulse Rate 70 64 68 Pulse Rate [ From Monitor] Respiratory 16 18 17 Rate Blood Pressure 126/66 126/66 124/64 O2 Sat by Pulse 96 92 92 Oximetry 01/25/21 01/25/21 01/25/21 09:16 09:30 09:46 Temperature Pulse Rate 72 70 68 Pulse Rate [ From Monitor] Respiratory 11 L 14 19 Rate Blood Pressure 124/64 124/64 124/64 O2 Sat by Pulse 94 96 94 Oximetry 01/25/21 01/25/21 01/25/21 10:00 10:04 10:16 Temperature Pulse Rate 66 67 64 Pulse Rate [ From Monitor] Respiratory 17 16 Rate Blood Pressure 105/63 105/63 105/63 O2 Sat by Pulse 96 93 Oximetry 01/25/21 01/25/21 10:30 10:46 Temperature Pulse Rate 73 67 Pulse Rate [ From Monitor] Respiratory 16 17 Rate Blood Pressure 105/63 105/63 O2 Sat by Pulse 96 89 Oximetry - Labs CBC & Chem 7: 01/25/21 04:51 01/24/21 06:59 Labs: Abnormal lab results 01/24/21 01/24/21 01/24/21 Range/Units 09:54 12:37 16:32 Heparin Anti-Xa Level (0.3-0.7) U.I./ml POC Glucose 283 H 316 H 422 H (70-105) mg/dL Hemoglobin A1c (4-6) % 01/24/21 01/25/21 01/25/21 Range/Units 21:10 02:16 04:51 Heparin Anti-Xa Level (0.3-0.7) U.I./ml POC Glucose 363 H 158 H (70-105) mg/dL Hemoglobin A1c 14.7 H (4-6) % 01/25/21 01/25/21 01/25/21 Range/Units 05:33 08:01 08:12 Heparin Anti-Xa Level 0.24 L (0.3-0.7) U.I./ml POC Glucose 215 H 313 H (70-105) mg/dL Hemoglobin A1c (4-6) % Medications & Allergies - Medications Allergies/Adverse Reactions: Allergies No Known Allergies Allergy (Verified 01/23/21 22:07) Active Medications: Generic Name Dose Route Start Last Admin Trade Name Freq PRN Reason Stop Dose Admin Acetaminophen 650 mg 01/23/21 23:15 Acetaminophen 650 Mg Rect Supp TN Q4H PRN Headache Acetaminophen 650 mg 01/24/21 18:09 01/24/21 18:16 Acetaminophen 325 Mg Tab PO 650 mg Q6H PRN Administration Pain, Mild (1-3) Hydrocodone Bitart/Acetaminophen 1 each 01/23/21 23:45 Hydrocodone/Acetaminophen 5-325 Mg Tab PO Q6H PRN Pain, Moderate (4-6) Aspirin 325 mg 01/24/21 10:00 01/25/21 10:02 Aspirin Ec 325 Mg Tab PO 325 mg QDAY JENNA Administration Atorvastatin Calcium 40 mg 01/24/21 22:00 01/24/21 21:21 Atorvastatin 40 Mg Tab PO 40 mg QHS JENNA Administration Clopidogrel Bisulfate 75 mg 01/24/21 10:00 01/25/21 10:01 Clopidogrel 75 Mg Tab PO 75 mg QDAY JENNA Administration Dextrose 50 ml 01/23/21 23:11 Dextrose 50% In Water (25gm) 50 Ml Syringe IV Q30MIN PRN Hypoglycemia Protocol Famotidine 40 mg 01/24/21 22:00 01/24/21 21:15 Famotidine 20 Mg Tab PO 40 mg QHS JENNA Administration Heparin Sodium (Porcine) 4,000 unit 01/23/21 23:45 Heparin 10,000 Units/10 Ml Vial 40 unit/kg (4000 unit) IV Q6H PRN Anti-Xa Assay<0.1 units/ml Heparin Sodium/Sodium Chloride 25,000 unit in 500 mls @ 20 mls/hr 01/23/21 23:45 01/24/21 21:23 Heparin/ 0.45% Nacl-25,000 Unit/500 Ml IV 1,000 units/hr TITRATE JENNA 20 mls/hr Administration Protocol 1,000 UNITS/HR Tirofiban/Sodium Chloride 12,500 mcg in 250 mls @ 18 mls/hr 01/23/21 23:45 01/24/21 21:07 Aggrastat Drip (12.5 Mg/250 Ml) IV 01/25/21 23:44 18 mls/hr DIRECT JENNA Administration Protocol Per Protocol Insulin Glargine 15 units 01/25/21 22:00 Insulin Glargine 100 Units/Ml SUB-Q QHS JENNA Insulin Human Regular 0 units 01/24/21 11:30 01/25/21 08:26 Insulin Regular, Human 100 Units/1 Ml SUB-Q 8 units ACHS JENNA Administration Protocol Isosorbide Mononitrate 30 mg 01/24/21 10:00 01/24/21 09:49 Isosorbide Mononitrate Er 30 Mg Tab PO 30 mg QDAY JENNA Administration Lisinopril 5 mg 01/24/21 10:00 01/25/21 10:04 Lisinopril 5 Mg Tab PO Not Given QDAY JENNA Metoprolol Tartrate 25 mg 01/24/21 11:00 01/25/21 03:30 Metoprolol Tartrate 50 Mg Tab PO 25 mg Q8H JENNA Administration Morphine Sulfate 2 mg 01/23/21 23:13 Morphine 2 Mg/1 Ml Inj IV Q3H PRN Pain, Moderate (4-6) Nitroglycerin 0.4 mg 01/23/21 21:46 01/23/21 22:09 Nitroglycerin 0.4 Mg Tab Subl SL 0.4 mg .Q5MIN PRN Administration Chest Pain Ondansetron HCl 4 mg 01/23/21 23:13 Ondansetron 4 Mg/2 Ml Inj IV Q8H PRN Nausea And Vomiting HEART Score - HEART Score EKG: Non-specific Age: 45-65 Risk factors: 1-2 risk factors Troponin: Troponin T 0.230 ng/mL (0.00-0.029) H* D 01/24/21 06:59 Troponin: 1-3x normal limit - Critical Actions Critical Actions: 4-6 pts:12-16.6% risk of adverse cardiac event. Should be admitted (PATIENT IS BEING EVALUATED FOR CAD)
[2021-01-25] MEDS: TIROFIBAN/NS 12,500 MCG/250 ML BAG IV SCH (11:22)
--- NOTE | 2021-01-25 12:37 | Progress Note ---
Assessment and Plan - Patient Problems (1) ST elevation myocardial infarction (STEMI) of anterolateral wall Current Visit: Yes Status: Acute Plan to address problem: Patient is status post primary angioplasty and stenting of the mid LAD. There was extensive intraluminal thrombus that was also manifested by distal embolic occlusion of the LAD. Normal LVEF 55-60% by echocardiogram. Currently, he is on therapy with Aggrastat and low-dose intravenous heparin, in addition to plavix and aspirin. On completion of intravenous Aggrastat will increase intravenous heparin to standard intensity. Continue current medical therapy. Ok for transfer to telemetry today. Subjective Date of service: 01/25/21 Interval history: Patient is resting in bed and appears comfortable. He denies chest pain and unusual shortness of breath. IV Aggrastat and IV Heparin drip continues. Morning labs shows a hemoglobin A1C at 14.7. Objective Vital Signs Temp Pulse Pulse Pulse Resp Resp BP 01/25/21 11:42 01/25/21 11:30 70 10 L 113/62 01/25/21 11:22 69 113/62 01/25/21 11:16 71 14 113/62 01/25/21 11:00 65 17 113/62 01/25/21 10:46 67 17 105/63 01/25/21 10:30 73 16 105/63 01/25/21 10:16 64 16 105/63 01/25/21 10:04 67 105/63 01/25/21 10:00 66 17 105/63 01/25/21 09:46 68 19 124/64 01/25/21 09:30 70 14 124/64 01/25/21 09:16 72 11 L 124/64 01/25/21 09:00 68 17 124/64 01/25/21 08:46 64 18 126/66 01/25/21 08:30 70 16 126/66 01/25/21 08:16 70 15 126/66 01/25/21 08:00 99.6 F 65 8 L 126/66 01/25/21 07:46 94 H 12 123/77 01/25/21 07:30 74 11 L 123/77 01/25/21 07:16 71 11 L 123/77 01/25/21 07:00 73 15 117/60 01/25/21 06:46 74 10 L 117/60 01/25/21 06:30 72 14 117/60 01/25/21 06:16 77 10 L 117/60 01/25/21 06:00 76 14 121/60 01/25/21 05:46 63 17 121/60 01/25/21 05:30 64 17 121/60 01/25/21 05:16 76 10 L 121/64 01/25/21 05:00 75 12 101/51 01/25/21 04:46 67 18 101/51 01/25/21 04:30 71 18 101/51 01/25/21 04:16 65 7 L 104/57 01/25/21 04:00 61 60 16 104/57 01/25/21 03:46 78 18 105/64 01/25/21 03:30 74 16 117/60 01/25/21 03:28 99.3 F 01/25/21 03:26 99.3 F 01/25/21 03:16 62 17 106/58 01/25/21 03:00 65 19 106/58 01/25/21 02:46 64 18 110/56 01/25/21 02:30 62 16 110/56 01/25/21 02:16 65 11 L 106/64 01/25/21 02:00 62 16 106/64 01/25/21 01:46 63 17 102/57 01/25/21 01:30 61 18 102/57 01/25/21 01:16 63 19 120/57 01/25/21 01:00 67 11 L 120/57 01/25/21 00:46 68 8 L 120/66 01/25/21 00:30 66 11 L 120/66 01/25/21 00:16 60 11 L 113/70 01/25/21 00:00 56 L 61 16 100/48 01/24/21 23:51 98.8 F 01/24/21 23:46 56 L 15 100/48 01/24/21 23:30 57 L 17 107/57 01/24/21 23:16 60 17 100/48 01/24/21 23:00 58 L 0 L 100/48 01/24/21 22:46 58 L 16 104/63 01/24/21 22:30 59 L 15 106/64 01/24/21 22:16 60 17 106/64 01/24/21 22:00 59 L 17 16 94/47 01/24/21 21:46 62 17 94/47 01/24/21 21:30 61 11 L 94/47 01/24/21 21:16 61 17 98/52 01/24/21 21:00 59 L 18 98/52 01/24/21 20:46 61 15 116/65 01/24/21 20:30 67 15 116/75 01/24/21 20:16 75 15 116/65 01/24/21 20:00 98.5 F 68 63 12 116/65 01/24/21 19:46 70 11 L 113/65 01/24/21 19:31 68 108/59 01/24/21 19:30 70 11 L 108/59 01/24/21 19:16 69 16 113/65 01/24/21 19:00 64 15 113/65 01/24/21 18:46 65 15 116/66 01/24/21 18:32 65 17 116/66 01/24/21 18:30 61 17 116/66 01/24/21 18:20 67 13 107/57 01/24/21 18:10 64 13 107/57 01/24/21 18:00 70 60 12 107/57 01/24/21 17:50 69 10 L 109/63 01/24/21 17:40 63 18 109/63 01/24/21 17:30 72 12 109/63 01/24/21 17:20 75 10 L 104/48 01/24/21 17:10 75 14 104/48 01/24/21 17:00 64 67 17 98/65 01/24/21 16:50 67 15 98/65 01/24/21 16:40 72 12 98/65 01/24/21 16:30 70 12 108/66 01/24/21 16:20 68 10 L 108/66 01/24/21 16:10 70 13 108/66 01/24/21 16:00 98.6 F 69 67 16 108/66 01/24/21 15:50 71 11 L 109/56 01/24/21 15:40 65 15 109/56 01/24/21 15:30 71 16 109/56 01/24/21 15:20 67 16 99/69 01/24/21 15:10 78 11 L 99/69 01/24/21 15:00 72 68 18 92/59 01/24/21 14:50 63 15 92/59 01/24/21 14:40 62 18 92/59 01/24/21 14:30 62 15 99/52 01/24/21 14:20 63 15 99/52 01/24/21 14:10 59 L 15 99/52 01/24/21 14:00 61 62 16 99/52 01/24/21 13:50 63 15 97/53 01/24/21 13:40 60 15 97/53 01/24/21 13:30 59 L 15 97/53 01/24/21 13:20 59 L 17 107/71 01/24/21 13:10 65 15 107/71 01/24/21 13:00 65 13 107/71 01/24/21 12:50 66 10 L 116/69 01/24/21 12:40 71 18 116/69 Pulse Ox 01/25/21 11:42 98 01/25/21 11:30 98 01/25/21 11:22 01/25/21 11:16 96 01/25/21 11:00 96 01/25/21 10:46 89 01/25/21 10:30 96 01/25/21 10:16 93 01/25/21 10:04 01/25/21 10:00 96 01/25/21 09:46 94 01/25/21 09:30 96 01/25/21 09:16 94 01/25/21 09:00 92 01/25/21 08:46 92 01/25/21 08:30 96 01/25/21 08:16 98 01/25/21 08:00 97 01/25/21 07:46 96 01/25/21 07:30 98 01/25/21 07:16 97 01/25/21 07:00 96 01/25/21 06:46 98 01/25/21 06:30 98 01/25/21 06:16 97 01/25/21 06:00 01/25/21 05:46 93 01/25/21 05:30 97 01/25/21 05:16 96 01/25/21 05:00 97 01/25/21 04:46 96 01/25/21 04:30 97 01/25/21 04:16 98 01/25/21 04:00 98 01/25/21 03:46 98 01/25/21 03:30 97 01/25/21 03:28 01/25/21 03:26 01/25/21 03:16 97 01/25/21 03:00 97 01/25/21 02:46 96 01/25/21 02:30 95 01/25/21 02:16 99 01/25/21 02:00 96 01/25/21 01:46 97 01/25/21 01:30 96 01/25/21 01:16 94 01/25/21 01:00 97 01/25/21 00:46 98 01/25/21 00:30 99 01/25/21 00:16 98 01/25/21 00:00 98 01/24/21 23:51 01/24/21 23:46 98 01/24/21 23:30 95 01/24/21 23:16 97 01/24/21 23:00 96 01/24/21 22:46 98 01/24/21 22:30 97 01/24/21 22:16 96 01/24/21 22:00 97 01/24/21 21:46 95 01/24/21 21:30 98 01/24/21 21:16 98 01/24/21 21:00 94 01/24/21 20:46 97 01/24/21 20:30 100 01/24/21 20:16 99 01/24/21 20:00 97 01/24/21 19:46 97 01/24/21 19:31 01/24/21 19:30 98 01/24/21 19:16 98 01/24/21 19:00 97 01/24/21 18:46 97 01/24/21 18:32 97 01/24/21 18:30 97 01/24/21 18:20 97 01/24/21 18:10 95 01/24/21 18:00 98 01/24/21 17:50 97 01/24/21 17:40 97 01/24/21 17:30 97 01/24/21 17:20 96 01/24/21 17:10 97 01/24/21 17:00 97 01/24/21 16:50 97 01/24/21 16:40 98 01/24/21 16:30 99 01/24/21 16:20 98 01/24/21 16:10 99 01/24/21 16:00 96 01/24/21 15:50 97 01/24/21 15:40 95 01/24/21 15:30 96 01/24/21 15:20 95 01/24/21 15:10 97 01/24/21 15:00 96 01/24/21 14:50 96 01/24/21 14:40 96 01/24/21 14:30 96 01/24/21 14:20 96 01/24/21 14:10 97 01/24/21 14:00 94 01/24/21 13:50 94 01/24/21 13:40 94 01/24/21 13:30 94 01/24/21 13:20 94 01/24/21 13:10 98 01/24/21 13:00 96 01/24/21 12:50 96 01/24/21 12:40 96 - Physical Examination General: No Apparent Distress HEENT: Positive: PERRL Neck: Positive: neck supple Cardiac: Positive: Reg Rate and Rhythm Lungs: Positive: Decreased Breath Sounds Neuro: Positive: Grossly Intact Abdomen: Positive: Soft Extremities: Absent: edema - Labs and Meds CBC 01/25/21 Range/Units 04:51 Hgb 14.0 (11.8-15.2) gm/dl Hct 41.5 (35.5-45.6) % Plt Count 185 (140-440) K/mm3
--- NOTE | 2021-01-25 13:03 | Progress Note ---
<RAFFAELE CARO - Last Filed: 01/25/21 13:22> Assessment and Plan Assessment and plan: -S/p PCI with JIMBO to LAD -On Aggrastat and heparin drip -SSI -Hemoglobin A1c 14 -Long-acting insulin -Aspirin, atorvastatin, Plavix, lisinopril, metoprolol -As needed nitroglycerin DVT/GI prophylaxis: Systemic anticoagulation with heparin, SCDs to bilateral LE while in bed, PPI Dispo: Transfer to floor History Interval history: This is a 60-year-old male who has current tobacco and EtOH abuse who presents to the emergency department on 01/23 with complaints of chest tightness with radi ation down both arms since 11 AM on 01/23 associated with nausea and lightheadedness which was relieved after 2 sublingual nitroglycerin in the emergency department. EKG showed STEMI and he was taken to the [facility] with Dr. Kelley where they found a hazy ulcerated plaque in the mid segment of the LAD associated with significant residual thrombus and the distal and apical segment of the LAD were occluded by distal thrombus also. Patient is status post a drug-eluting stent to primary lesion in the mid LAD. The patient was placed on intravenous anticoagulant interventions antiplatelet therapy to enhance resolution of his distal embolic LAD lesion. Left ventricular angiography showed preserved LV systolic function with ejection fraction of 50 to 55%. Patient was admitted to the hospital service with consult to cardiology and [facility]. NSTEMI Hyperglycemia Pseudohyponatremia Tobacco abuse EtOH abuse 01/24: Patient remains on Aggrastat and heparin drip. Cardiology requests the patient stay in ICU. Patient says that he is is not have any chest pain, respiratory distress, nausea or vomiting. No acute events reported overnight. 01/25: Patient remains on Aggrastat and heparin drip. Patient will be transferred to [facility] Tele later today pending covid results. Cardio plans to take patient back to [facility] later this week. No acute events reported overnight. Patient complains of occasional headaches relieved with tylenol. Hospitalist Physical - Constitutional Vitals: Temp Pulse Resp BP Pulse Ox 99.6 F 64 18 115/68 95 01/25/21 08:00 01/25/21 12:30 01/25/21 12:30 01/25/21 12:30 01/25/21 12:30 General appearance: Present: no acute distress - EENT Eyes: Present: PERRL, EOM intact ENT: hearing intact, clear oral mucosa, dentition normal - Neck Neck: Present: normal ROM - Respiratory Respiratory effort: normal Respiratory: bilateral: CTA - Cardiovascular Rhythm: regular Heart Sounds: Present: S1 & S2. Absent: systolic murmur, diastolic murmur - Extremities Extremities: no ischemia, pulses intact, pulses symmetrical, No edema, normal temperature, normal color, Full ROM Peripheral Pulses: within normal limits - Abdominal General gastrointestinal: soft, non-tender, non-distended, normal bowel sounds - Integumentary Integumentary: Present: clear, warm, dry - Psychiatric Psychiatric: cooperative - Neurologic Neurologic: CNII-XII intact, no focal deficits, moves all extremities - Allied Health Allied health notes reviewed: nursing, social work HEART Score - HEART Score EKG: Non-specific Age: 45-65 Risk factors: 1-2 risk factors Troponin: Troponin T 0.230 ng/mL (0.00-0.029) H* D 01/24/21 06:59 Troponin: 1-3x normal limit - Critical Actions Critical Actions: 4-6 pts:12-16.6% risk of adverse cardiac event. Should be admitted (PATIENT IS BEING EVALUATED FOR CAD) Results - Labs CBC & Chem 7: 01/25/21 04:51 01/24/21 06:59 Labs: Laboratory Last Values WBC 5.8 K/mm3 (4.5-11.0) 01/24/21 06:59 RBC 4.83 M/mm3 (3.65-5.03) 01/24/21 06:59 Hgb 14.0 gm/dl (11.8-15.2) 01/25/21 04:51 Hct 41.5 % (35.5-45.6) 01/25/21 04:51 MCV 91 fl (84-94) 01/24/21 06:59 MCH 31 pg (28-32) 01/24/21 06:59 MCHC 34 % (32-34) 01/24/21 06:59 RDW 12.5 % (13.2-15.2) L 01/24/21 06:59 Plt Count 185 K/mm3 (140-440) 01/25/21 04:51 Lymph % (Auto) 33.0 % (13.4-35.0) 01/24/21 06:59 [place] % (Auto) 7.9 % (0.0-7.3) H 01/24/21 06:59 Eos % (Auto) 1.1 % (0.0-4.3) 01/24/21 06:59 Baso % (Auto) 0.7 % (0.0-1.8) 01/24/21 06:59 Lymph # (Auto) 1.9 K/mm3 (1.2-5.4) 01/24/21 06:59 [place] # (Auto) 0.5 K/mm3 (0.0-0.8) 01/24/21 06:59 Eos # (Auto) 0.1 K/mm3 (0.0-0.4) 01/24/21 06:59 Baso # (Auto) 0.0 K/mm3 (0.0-0.1) 01/24/21 06:59 Seg Neutrophils % 57.3 % (40.0-70.0) 01/24/21 06:59 Seg Neutrophils # 3.3 K/mm3 (1.8-7.7) 01/24/21 06:59 PT 14.4 Sec. (12.2-14.9) 01/24/21 00:43 INR 1.13 (0.87-1.13) 01/24/21 00:43 APTT 142.3 Sec. (24.2-36.6) H* 01/24/21 00:43 Heparin Anti-Xa Level 0.24 U.I./ml (0.3-0.7) L 01/25/21 08:01 Sodium 134 mmol/L (137-145) L 01/24/21 06:59 Potassium 4.3 mmol/L (3.6-5.0) 01/24/21 06:59 Chloride 101.3 mmol/L (98-107) 01/24/21 06:59 Carbon Dioxide 23 mmol/L (22-30) 01/24/21 06:59 Anion Gap 14 mmol/L 01/24/21 06:59 BUN 9 mg/dL (9-20) 01/24/21 06:59 Creatinine 0.8 mg/dL (0.8-1.3) 01/24/21 06:59 Estimated GFR > 60 ml/min 01/24/21 06:59 BUN/Creatinine Ratio 11 % 01/24/21 06:59 Glucose 315 mg/dL (75-100) H 01/24/21 06:59 POC Glucose 313 mg/dL (70-105) H 01/25/21 08:12 Hemoglobin A1c 14.7 % (4-6) H 01/25/21 04:51 Calcium 8.8 mg/dL (8.4-10.2) 01/24/21 06:59 Total Creatine Kinase 184 units/L (55-170) H 01/23/21 Unknown CK-MB (CK-2) 7.4 ng/mL (0.0-4.0) H 01/23/21 Unknown CK-MB (CK-2) Rel Index 4.0 (0-4) 01/23/21 Unknown Troponin T 0.230 ng/mL (0.00-0.029) H* D 01/24/21 06:59 Triglycerides 246 mg/dL (2-149) H 01/23/21 Unknown Cholesterol 238 mg/dL (50-199) H 01/23/21 Unknown LDL Cholesterol Direct 178 mg/dL (50-130) H 01/23/21 Unknown HDL Cholesterol 46 mg/dL (40-59) 01/23/21 Unknown Cholesterol/HDL Ratio 5.17 % 01/23/21 Unknown Blood Type A POSITIVE 01/23/21 Unknown Antibody Screen Negative 01/23/21 Unknown Saucedo/IV: Voiding Method Urinal Active Medications - Current Medications Current Medications: Generic Name Dose Route Start Last Admin Trade Name Freq PRN Reason Stop Dose Admin Acetaminophen 650 mg 01/23/21 23:15 Acetaminophen 650 Mg Rect Supp UT Q4H PRN Headache Acetaminophen 650 mg 01/24/21 18:09 01/24/21 18:16 Acetaminophen 325 Mg Tab PO 650 mg Q6H PRN Administration Pain, Mild (1-3) Hydrocodone Bitart/Acetaminophen 1 each 01/23/21 23:45 Hydrocodone/Acetaminophen 5-325 Mg Tab PO Q6H PRN Pain, Moderate (4-6) Aspirin 325 mg 01/24/21 10:00 01/25/21 10:02 Aspirin Ec 325 Mg Tab PO 325 mg QDAY JENNA Administration Atorvastatin Calcium 40 mg 01/24/21 22:00 01/24/21 21:21 Atorvastatin 40 Mg Tab PO 40 mg QHS JENNA Administration Clopidogrel Bisulfate 75 mg 01/24/21 10:00 01/25/21 10:01 Clopidogrel 75 Mg Tab PO 75 mg QDAY JENNA Administration Dextrose 50 ml 01/23/21 23:11 Dextrose 50% In Water (25gm) 50 Ml Syringe IV Q30MIN PRN Hypoglycemia Protocol Famotidine 40 mg 01/24/21 22:00 01/24/21 21:15 Famotidine 20 Mg Tab PO 40 mg QHS JENNA Administration Heparin Sodium (Porcine) 4,000 unit 01/23/21 23:45 Heparin 10,000 Units/10 Ml Vial 40 unit/kg (4000 unit) IV Q6H PRN Anti-Xa Assay<0.1 units/ml Heparin Sodium/Sodium Chloride 25,000 unit in 500 mls @ 20 mls/hr 01/23/21 23:45 01/24/21 21:23 Heparin/ 0.45% Nacl-25,000 Unit/500 Ml IV 1,000 units/hr TITRATE JENNA 20 mls/hr Administration Protocol 1,000 UNITS/HR Tirofiban/Sodium Chloride 12,500 mcg in 250 mls @ 18 mls/hr 01/23/21 23:45 01/25/21 11:22 Aggrastat Drip (12.5 Mg/250 Ml) IV 01/25/21 23:44 18 mls/hr DIRECT JENNA Administration Protocol Per Protocol Insulin Glargine 15 units 01/25/21 22:00 Insulin Glargine 100 Units/Ml SUB-Q QHS [facility] Insulin Human Regular 0 units 01/24/21 11:30 01/25/21 12:05 Insulin Regular, Human 100 Units/1 Ml SUB-Q 8 units ACHS JENNA Administration Protocol Isosorbide Mononitrate 30 mg 01/24/21 10:00 01/25/21 10:00 Isosorbide Mononitrate Er 30 Mg Tab PO 30 mg QDAY JENNA Administration Lisinopril 5 mg 01/24/21 10:00 01/25/21 10:04 Lisinopril 5 Mg Tab PO Not Given QDAY [facility] Metoprolol Tartrate 25 mg 01/24/21 11:00 01/25/21 11:22 Metoprolol Tartrate 50 Mg Tab PO 25 mg Q8H JENNA Administration Morphine Sulfate 2 mg 01/23/21 23:13 Morphine 2 Mg/1 Ml Inj IV Q3H PRN Pain, Moderate (4-6) Nitroglycerin 0.4 mg 01/23/21 21:46 01/23/21 22:09 Nitroglycerin 0.4 Mg Tab Subl SL 0.4 mg .Q5MIN PRN Administration Chest Pain Ondansetron HCl 4 mg 01/23/21 23:13 Ondansetron 4 Mg/2 Ml Inj IV Q8H PRN Nausea And Vomiting Nutrition/Malnutrition Assess - Dietary Evaluation Nutrition/Malnutrition Findings: Nutrition Notes Start: 01/24/21 11:50 Freq: Status: Active Protocol: Document 01/25/21 09:07 CW (Rec: 01/25/21 09:13 CW [id number]) Nutrition Notes Need for Assessment generated from: Education Initial or Follow up Assessment Current Diagnosis Coronary Artery Disease Other Pertinent Diagnosis Hyperglycemia, STEMI Current Diet Cardiac Consistent Carbohydrate Diet Labs/Tests HgbA1c 14.7 BG 158 Pertinent Medications Lantus Humulin Height 6 ft 6 in Weight 101.4 kg [place] Body Weight (kg) 97.27 BMI 25.8 Weight Status Appropriate Subjective/Other Information F/U diet education and intakes . Per RN pt is eating 100% of meals. Attempted diet education for the second time. Pt refused diet education at this time and would prefer to speak tomorrow afternoon. Pt has the education in room on shelf but has not looked over it. Burn Absent Trauma Absent GI Symptoms None Current % PO Good (75-100%) Minimum of two criteria No physical signs of malnutrition #1 Nutrition Diagnosis Food and nutrition-related knowledge deficit As Evidenced by Signs and Symptoms pt refused education at this time. Diagnosis Progress(for reassessment Continues documentation) Is patient on ventilator? No Is Patient Ambulatory and/or Out of Bed Yes REE-([place]-ambulatory/OOB) [ 2550.925 [id number]] [facility] Additional Notes protein needs: 81 - 101 (0.8 - 1g/kgBW) fluid needs: 1 ml/kcal or per MD Nutrition Intervention Change Diet Order: Continue Cardiac Consistent Carbohydrate diet Teaching Recipient Patient Learning Readiness Poor Teaching Methods Discussion,Handout Barriers to Learning Motivation RD phone number provided Yes Patient aware of follow up options Yes Goal #1 Understand importance of how carbohyradate intake affects health Goal #2 Meet at least 75% of kcal and protein needs via PO Anticipated Discharge Needs: Cardiac Consistent Carbohydrate diet Follow-Up By: 01/26/21 Additional Comments F/U for diet education <JOJO JIN - Last Filed: 01/26/21 07:21> Assessment and Plan Assessment and plan: I saw and evaluated the patient. I agree with the findings and the plan of care as documented in the Nurse Practitioner's~note, with the following corrections and additions. Hospitalist Physical - Constitutional Vitals: Temp Pulse Resp BP Pulse Ox 98.0 F 68 13 103/60 97 01/26/21 03:14 01/26/21 03:14 01/26/21 03:14 01/26/21 05:39 01/26/21 03:14 HEART Score - HEART Score Troponin: Troponin T 0.230 ng/mL (0.00-0.029) H* D 01/24/21 06:59 Results - Labs CBC & Chem 7: 01/25/21 04:51 01/24/21 06:59 Labs: Laboratory Last Values WBC 5.8 K/mm3 (4.5-11.0) 01/24/21 06:59 RBC 4.83 M/mm3 (3.65-5.03) 01/24/21 06:59 Hgb 14.0 gm/dl (11.8-15.2) 01/25/21 04:51 Hct 41.5 % (35.5-45.6) 01/25/21 04:51 MCV 91 fl (84-94) 01/24/21 06:59 MCH 31 pg (28-32) 01/24/21 06:59 MCHC 34 % (32-34) 01/24/21 06:59 RDW 12.5 % (13.2-15.2) L 01/24/21 06:59 Plt Count 185 K/mm3 (140-440) 01/25/21 04:51 Lymph % (Auto) 33.0 % (13.4-35.0) 01/24/21 06:59 [place] % (Auto) 7.9 % (0.0-7.3) H 01/24/21 06:59 Eos % (Auto) 1.1 % (0.0-4.3) 01/24/21 06:59 Baso % (Auto) 0.7 % (0.0-1.8) 01/24/21 06:59 Lymph # (Auto) 1.9 K/mm3 (1.2-5.4) 01/24/21 06:59 [place] # (Auto) 0.5 K/mm3 (0.0-0.8) 01/24/21 06:59 Eos # (Auto) 0.1 K/mm3 (0.0-0.4) 01/24/21 06:59 Baso # (Auto) 0.0 K/mm3 (0.0-0.1) 01/24/21 06:59 Seg Neutrophils % 57.3 % (40.0-70.0) 01/24/21 06:59 Seg Neutrophils # 3.3 K/mm3 (1.8-7.7) 01/24/21 06:59 PT 14.4 Sec. (12.2-14.9) 01/24/21 00:43 INR 1.13 (0.87-1.13) 01/24/21 00:43 APTT 142.3 Sec. (24.2-36.6) H* 01/24/21 00:43 Heparin Anti-Xa Level 0.24 U.I./ml (0.3-0.7) L 01/25/21 08:01 Sodium 134 mmol/L (137-145) L 01/24/21 06:59 Potassium 4.3 mmol/L (3.6-5.0) 01/24/21 06:59 Chloride 101.3 mmol/L (98-107) 01/24/21 06:59 Carbon Dioxide 23 mmol/L (22-30) 01/24/21 06:59 Anion Gap 14 mmol/L 01/24/21 06:59 BUN 9 mg/dL (9-20) 01/24/21 06:59 Creatinine 0.8 mg/dL (0.8-1.3) 01/24/21 06:59 Estimated GFR > 60 ml/min 01/24/21 06:59 BUN/Creatinine Ratio 11 % 01/24/21 06:59 Glucose 315 mg/dL (75-100) H 01/24/21 06:59 POC Glucose 307 mg/dL (70-105) H 01/26/21 07:17 Hemoglobin A1c 14.7 % (4-6) H 01/25/21 04:51 Calcium 8.8 mg/dL (8.4-10.2) 01/24/21 06:59 Total Creatine Kinase 184 units/L (55-170) H 01/23/21 Unknown CK-MB (CK-2) 7.4 ng/mL (0.0-4.0) H 01/23/21 Unknown CK-MB (CK-2) Rel Index 4.0 (0-4) 01/23/21 Unknown Troponin T 0.230 ng/mL (0.00-0.029) H* D 01/24/21 06:59 Triglycerides 246 mg/dL (2-149) H 01/23/21 Unknown Cholesterol 238 mg/dL (50-199) H 01/23/21 Unknown LDL Cholesterol Direct 178 mg/dL (50-130) H 01/23/21 Unknown HDL Cholesterol 46 mg/dL (40-59) 01/23/21 Unknown Cholesterol/HDL Ratio 5.17 % 01/23/21 Unknown Coronavirus (PCR) Negative (Negative) 01/25/21 Unknown Blood Type A POSITIVE 01/23/21 Unknown Antibody Screen Negative 01/23/21 Unknown Saucedo/IV: Voiding Method Urinal Active Medications - Current Medications Current Medications: Generic Name Dose Route Start Last Admin Trade Name Freq PRN Reason Stop Dose Admin Acetaminophen 650 mg 01/23/21 23:15 Acetaminophen 650 Mg Rect Supp UT Q4H PRN Headache Acetaminophen 650 mg 01/24/21 18:09 01/25/21 16:18 Acetaminophen 325 Mg Tab PO 650 mg Q6H PRN Administration Pain, Mild (1-3) Hydrocodone Bitart/Acetaminophen 1 each 01/23/21 23:45 Hydrocodone/Acetaminophen 5-325 Mg Tab PO Q6H PRN Pain, Moderate (4-6) Aspirin 325 mg 01/24/21 10:00 01/25/21 10:02 Aspirin Ec 325 Mg Tab PO 325 mg QDAY JENNA Administration Atorvastatin Calcium 40 mg 01/24/21 22:00 01/25/21 22:22 Atorvastatin 40 Mg Tab PO 40 mg QHS JENNA Administration Clopidogrel Bisulfate 75 mg 01/24/21 10:00 01/25/21 10:01 Clopidogrel 75 Mg Tab PO 75 mg QDAY JENNA Administration Dextrose 50 ml 01/23/21 23:11 Dextrose 50% In Water (25gm) 50 Ml Syringe IV Q30MIN PRN Hypoglycemia Protocol Famotidine 40 mg 01/24/21 22:00 01/25/21 22:22 Famotidine 20 Mg Tab PO 40 mg QHS [facility] Administration Heparin Sodium (Porcine) 4,000 unit 01/23/21 23:45 Heparin 10,000 Units/10 Ml Vial 40 unit/kg (4000 unit) IV Q6H PRN Anti-Xa Assay<0.1 units/ml Heparin Sodium/Sodium Chloride 25,000 unit in 500 mls @ 20 mls/hr 01/25/21 23:45 Heparin/ 0.45% Nacl-25,000 Unit/500 Ml IV TITRATE [facility] Protocol 1,000 UNITS/HR Insulin Glargine 15 units 01/25/21 22:00 01/25/21 22:31 Insulin Glargine 100 Units/Ml SUB-Q 15 units QHS [facility] Administration Insulin Human Regular 0 units 01/24/21 11:30 01/25/21 22:21 Insulin Regular, Human 100 Units/1 Ml SUB-Q 6 units ACHS [facility] Administration Protocol Isosorbide Mononitrate 30 mg 01/24/21 10:00 01/25/21 10:00 Isosorbide Mononitrate Er 30 Mg Tab PO 30 mg QDAY [facility] Administration Lisinopril 5 mg 01/24/21 10:00 01/25/21 10:04 Lisinopril 5 Mg Tab PO Not Given QDAY [facility] Metoprolol Tartrate 25 mg 01/24/21 11:00 01/26/21 05:39 Metoprolol Tartrate 50 Mg Tab PO Not Given Q8H [facility] Morphine Sulfate 2 mg 01/23/21 23:13 Morphine 2 Mg/1 Ml Inj IV Q3H PRN Pain, Moderate (4-6) Nitroglycerin 0.4 mg 01/23/21 21:46 01/23/21 22:09 Nitroglycerin 0.4 Mg Tab Subl SL 0.4 mg .Q5MIN PRN Administration Chest Pain Ondansetron HCl 4 mg 01/23/21 23:13 Ondansetron 4 Mg/2 Ml Inj IV Q8H PRN Nausea And Vomiting Nutrition/Malnutrition Assess - Dietary Evaluation Nutrition/Malnutrition Findings: Nutrition Notes Start: 01/24/21 11:50 Freq: Status: Active Protocol: Document 01/25/21 09:07 CW (Rec: 01/25/21 09:13 CW [id number]) Nutrition Notes Need for Assessment generated from: Education Initial or Follow up Assessment Current Diagnosis Coronary Artery Disease Other Pertinent Diagnosis Hyperglycemia, STEMI Current Diet Cardiac Consistent Carbohydrate Diet Labs/Tests HgbA1c 14.7 BG 158 Pertinent Medications Lantus Humulin Height 6 ft 6 in Weight 101.4 kg [place] Body Weight (kg) 97.27 BMI 25.8 Weight Status Appropriate Subjective/Other Information F/U diet education and intakes . Per RN pt is eating 100% of meals. Attempted diet education for the second time. Pt refused diet education at this time and would prefer to speak tomorrow afternoon. Pt has the education in room on shelf but has not looked over it. Burn Absent Trauma Absent GI Symptoms None Current % PO Good (75-100%) Minimum of two criteria No physical signs of malnutrition #1 Nutrition Diagnosis Food and nutrition-related knowledge deficit As Evidenced by Signs and Symptoms pt refused education at this time. Diagnosis Progress(for reassessment Continues documentation) Is patient on ventilator? No Is Patient Ambulatory and/or Out of Bed Yes REE-([place] [employer] [facility] [employer] [facility]-ambulatory/OOB) [ 2550.925 NUTR.[email or web address]] Calculation Used for Recommendations [facility] Additional Notes protein needs: 81 - 101 (0.8 - 1g/kgBW) fluid needs: 1 ml/kcal or per MD Nutrition Intervention Change Diet Order: Continue Cardiac Consistent Carbohydrate diet Teaching Recipient Patient Learning Readiness Poor Teaching Methods Discussion,Handout Barriers to Learning Motivation RD phone number provided Yes Patient aware of follow up options Yes Goal #1 Understand importance of how carbohyradate intake affects health Goal #2 Meet at least 75% of kcal and protein needs via PO Anticipated Discharge Needs: Cardiac Consistent Carbohydrate diet Follow-Up By: 01/26/21 Additional Comments F/U for diet education
[2021-01-25] MEDS: ACETAMINOPHEN 325 MG TAB PO PRN (16:18)
[2021-01-25] MEDS ORDERED: INSULIN GLARGINE 100 UNITS/ML SUB-Q SCH (22:00)
[2021-01-25] MEDS: FAMOTIDINE 20 MG TAB PO SCH (22:22)
[2021-01-26] MEDS: METOPROLOL TARTRATE 50 MG TAB PO SCH ×3 (05:39→21:04)
--- NOTE | 2021-01-26 08:42 | Electrocardiograph Report ---
[facility] Test Date: 2021-01-23 Test Time: 21:30:10 Pat Name: ANTONI YOUNG Department: Room: A461 Gender: M [employer]er: VANESSA : 1960 Requested By: KINJAL LEAL Order Number: [id number] Reading MD: Jean Singh Measurements Intervals [place] Rate: 64 P: 26 VA: 161 QRS: -25 QRSD: 109 T: 48 QT: 406 QTc: 421 Interpretive Statements Sinus rhythm Inferior infarct, acute Anterior infarct, acute No previous ECG available for comparison Electronically Signed On 01-26-2021 5:41:40 PDT by Jean Singh
[2021-01-26] MEDS: HEPARIN/ 0.45% NACL DRIP 25,000 UNIT/500 ML BAG IV SCH ×2 (09:37→09:56)
[2021-01-26] MEDS: INSULIN REGULAR, HUMAN 100 UNITS/1 ML SUB-Q SCH ×4 (09:53→22:20)
--- NOTE | 2021-01-26 09:53 | Event Note ---
Date: 01/26/21 We will order a Re-cath today for further assessment of distal LAD occlusion after 48hrs of IV antiplatelet and anticoagulant therapy. Risks and benefits discussed with patient and and they consent to proceed.
[2021-01-26] MEDS: ASPIRIN EC 325 MG TAB PO SCH (09:54)
[2021-01-26] MEDS: LISINOPRIL 5 MG TAB PO SCH ×2 (09:55→14:53)
[2021-01-26] MEDS: CLOPIDOGREL 75 MG TAB PO SCH (09:55)
[2021-01-26] MEDS ORDERED: HEPARIN 10,000 UNITS/10 ML VIAL IV ONE (10:00)
[2021-01-26] MEDS ORDERED: SODIUM CHLORIDE 0.9% 500 ML 500 ML IV SCH (10:30)
--- NOTE | 2021-01-26 10:52 | Progress Note ---
Assessment and Plan Assessment and plan: This is a 60-year-old male who has current tobacco and EtOH abuse who presents to the emergency department on 01/23 with complaints of chest tightness with radiation down both arms since 11 AM on 01/23 associated with nausea and lightheadedness which was relieved after 2 sublingual nitroglycerin [facility] EKG showed STEMI and he was taken to the [facility] with Dr. Kelley where they found a hazy ulcerated plaque in the mid segment of the LAD associated with significant residual thrombus and the distal and apical segment of the LAD were occluded by distal thrombus also. Patient is status post a drug-eluting stent to primary lesion in the mid LAD. The patient was placed on intravenous anticoagulant interventions antiplatelet therapy to enhance resolution of his distal embolic LAD lesion. Left ventricular angiography showed preserved LV systolic function with ejection fraction of 50 to 55%. Patient was admitted to the hospital service with consult to cardiology and CC STEMI Diabetes mellitus with hyperglycemia Pseudohyponatremia Tobacco abuse EtOH abuse 01/24: Patient remains on Aggrastat and heparin drip. Cardiology requests the patient stay in ICU. Patient says that he is is not have any chest pain, respiratory distress, nausea or vomiting. No acute events reported overnight. 01/25: Patient remains on Aggrastat and heparin drip. Patient will be transferred to [facility] Tele later today pending covid results. Cardio plans to take patient back to [facility] later this week. No acute events reported overnight. Patient complains of occasional headaches relieved with tylenol. 01/26: Patient clinically stable at this time. Aggrastat was discontinued this morning there was a brief period of time when heparin drip was also discontinued. This has been restarted this morning. Discussed with doctor of nursing practice patient will go back to [facility] for reevaluation considering dis javier thrombus. At this patient is a the patient may be discharged today. 15 minutes has been spent on counseling on tobacco and alcohol use patient verbalized understanding. Patient's diagnosis of diabetes has been discussed with the patient also. Will ensure appropriate medications and discharge. Hemoglobin A1c was greater than 14 S/p PCI with JIMBO to LAD -On Aggrastat and heparin drip -SSI -Hemoglobin A1c 14 -Long-acting insulin -Aspirin, atorvastatin, Plavix, lisinopril, metoprolol -As needed nitroglycerin DVT/GI prophylaxis: Systemic anticoagulation with heparin, SCDs to bilateral LE while in bed, PPI Dispo: Transfer to floor History Interval history: Patient seen and examined. No new complaints except he was concerned about heparin was discontinued last night. Cardiology was present in the room and did explain current management and plan. No chest pain nausea vomiting or diarrhea reported by the patient Hospitalist Physical - Physical exam Narrative exam: VITAL SIGNS: Reviewed. GENERAL: The patient appears normally developed, Vital signs as documented. HEAD: No signs of head trauma. EYES: Pupils are equal. Extraocular motions intact. EARS: Hearing grossly intact. MOUTH: Oropharynx is normal. NECK: No adenopathy, no JVD. CHEST: Chest with clear breath sounds bilaterally. No wheezes, rales, or rhonchi. CARDIAC: Regular rate and rhythm. S1 and S2, without murmurs, gallops, or rubs. VASCULAR: No Edema. Peripheral pulses normal and equal in all extremities. ABDOMEN: Soft, non tender and non distended. No rebound or guarding, and no masses palpated. Bowel Sounds normal. MUSCULOSKELETAL: Good range of motion of all major joints. Extremities without clubbing, cyanosis or edema. NEUROLOGIC EXAM: Alert and oriented x 3 No focal sensory or strength deficits. Speech normal. Follows commands. PSYCHIATRIC: Mood normal. SKIN: detail exam as documented in skin assessment - Constitutional Vitals: Temp Pulse Resp BP Pulse Ox 98.1 F 70 16 108/69 97 01/26/21 07:14 01/26/21 10:00 01/26/21 07:14 01/26/21 09:55 01/26/21 07:14 General appearance: Present: no acute distress HEART Score - HEART Score EKG: Non-specific Age: 45-65 Risk factors: 1-2 risk factors Troponin: Troponin T 0.230 ng/mL (0.00-0.029) H* D 01/24/21 06:59 Troponin: 1-3x normal limit - Critical Actions Critical Actions: 4-6 pts:12-16.6% risk of adverse cardiac event. Should be admitted (PATIENT IS BEING EVALUATED FOR CAD) Results - Labs CBC & Chem 7: 01/25/21 04:51 01/24/21 06:59 Labs: Laboratory Last Values WBC 5.8 K/mm3 (4.5-11.0) 01/24/21 06:59 RBC 4.83 M/mm3 (3.65-5.03) 01/24/21 06:59 Hgb 14.0 gm/dl (11.8-15.2) 01/25/21 04:51 Hct 41.5 % (35.5-45.6) 01/25/21 04:51 MCV 91 fl (84-94) 01/24/21 06:59 MCH 31 pg (28-32) 01/24/21 06:59 MCHC 34 % (32-34) 01/24/21 06:59 RDW 12.5 % (13.2-15.2) L 01/24/21 06:59 Plt Count 185 K/mm3 (140-440) 01/25/21 04:51 Lymph % (Auto) 33.0 % (13.4-35.0) 01/24/21 06:59 [place] % (Auto) 7.9 % (0.0-7.3) H 01/24/21 06:59 Eos % (Auto) 1.1 % (0.0-4.3) 01/24/21 06:59 Baso % (Auto) 0.7 % (0.0-1.8) 01/24/21 06:59 Lymph # (Auto) 1.9 K/mm3 (1.2-5.4) 01/24/21 06:59 [place] # (Auto) 0.5 K/mm3 (0.0-0.8) 01/24/21 06:59 Eos # (Auto) 0.1 K/mm3 (0.0-0.4) 01/24/21 06:59 Baso # (Auto) 0.0 K/mm3 (0.0-0.1) 01/24/21 06:59 Seg Neutrophils % 57.3 % (40.0-70.0) 01/24/21 06:59 Seg Neutrophils # 3.3 K/mm3 (1.8-7.7) 01/24/21 06:59 PT 14.4 Sec. (12.2-14.9) 01/24/21 00:43 INR 1.13 (0.87-1.13) 01/24/21 00:43 APTT 142.3 Sec. (24.2-36.6) H* 01/24/21 00:43 Heparin Anti-Xa Level < 0.01 U.I./ml (0.3-0.7) L 01/26/21 08:28 Sodium 134 mmol/L (137-145) L 01/24/21 06:59 Potassium 4.3 mmol/L (3.6-5.0) 01/24/21 06:59 Chloride 101.3 mmol/L (98-107) 01/24/21 06:59 Carbon Dioxide 23 mmol/L (22-30) 01/24/21 06:59 Anion Gap 14 mmol/L 01/24/21 06:59 BUN 9 mg/dL (9-20) 01/24/21 06:59 Creatinine 0.8 mg/dL (0.8-1.3) 01/24/21 06:59 Estimated GFR > 60 ml/min 01/24/21 06:59 BUN/Creatinine Ratio 11 % 01/24/21 06:59 Glucose 315 mg/dL (75-100) H 01/24/21 06:59 POC Glucose 307 mg/dL (70-105) H 01/26/21 07:17 Hemoglobin A1c 14.7 % (4-6) H 01/25/21 04:51 Calcium 8.8 mg/dL (8.4-10.2) 01/24/21 06:59 Total Creatine Kinase 184 units/L (55-170) H 01/23/21 Unknown CK-MB (CK-2) 7.4 ng/mL (0.0-4.0) H 01/23/21 Unknown CK-MB (CK-2) Rel Index 4.0 (0-4) 01/23/21 Unknown Troponin T 0.230 ng/mL (0.00-0.029) H* D 01/24/21 06:59 Triglycerides 246 mg/dL (2-149) H 01/23/21 Unknown Cholesterol 238 mg/dL (50-199) H 01/23/21 Unknown LDL Cholesterol Direct 178 mg/dL (50-130) H 01/23/21 Unknown HDL Cholesterol 46 mg/dL (40-59) 01/23/21 Unknown Cholesterol/HDL Ratio 5.17 % 01/23/21 Unknown Coronavirus (PCR) Negative (Negative) 01/25/21 Unknown Blood Type A POSITIVE 01/23/21 Unknown Antibody Screen Negative 01/23/21 Unknown Saucedo/IV: Voiding Method Urinal Active Medications - Current Medications Current Medications: Generic Name Dose Route Start Last Admin Trade Name Freq PRN Reason Stop Dose Admin Acetaminophen 650 mg 01/23/21 23:15 Acetaminophen 650 Mg Rect Supp MS Q4H PRN Headache Acetaminophen 650 mg 01/24/21 18:09 01/25/21 16:18 Acetaminophen 325 Mg Tab PO 650 mg Q6H PRN Administration Pain, Mild (1-3) Hydrocodone Bitart/Acetaminophen 1 each 01/23/21 23:45 Hydrocodone/Acetaminophen 5-325 Mg Tab PO Q6H PRN Pain, Moderate (4-6) Aspirin 325 mg 01/24/21 10:00 01/26/21 09:54 Aspirin Ec 325 Mg Tab PO 325 mg QDAY JENNA Administration Atorvastatin Calcium 40 mg 01/24/21 22:00 01/25/21 22:22 Atorvastatin 40 Mg Tab PO 40 mg QHS JENNA Administration Clopidogrel Bisulfate 75 mg 01/24/21 10:00 01/26/21 09:55 Clopidogrel 75 Mg Tab PO 75 mg QDAY JENNA Administration Dextrose 50 ml 01/23/21 23:11 Dextrose 50% In Water (25gm) 50 Ml Syringe IV Q30MIN PRN Hypoglycemia Protocol Famotidine 40 mg 01/24/21 22:00 01/25/21 22:22 Famotidine 20 Mg Tab PO 40 mg QHS JENNA Administration Heparin Sodium (Porcine) 4,000 unit 01/23/21 23:45 01/26/21 09:38 Heparin 10,000 Units/10 Ml Vial 40 unit/kg (4000 unit) 4,000 unit IV Administration Q6H PRN Anti-Xa Assay<0.1 units/ml Heparin Sodium/Sodium Chloride 25,000 unit in 500 mls @ 20 mls/hr 01/25/21 23:45 01/26/21 09:56 Heparin/ 0.45% Nacl-25,000 Unit/500 Ml IV 1,000 units/hr TITRATE JENNA 20 mls/hr Administration Protocol 1,000 UNITS/HR Sodium Chloride 500 mls @ 50 mls/hr 01/26/21 10:30 Nacl 0.9% 500 Ml IV 01/26/21 20:29 DIRECT JENNA Insulin Glargine 15 units 01/25/21 22:00 01/25/21 22:31 Insulin Glargine 100 Units/Ml SUB-Q 15 units QHS JENNA Administration Insulin Human Regular 0 units 01/24/21 11:30 01/26/21 09:53 Insulin Regular, Human 100 Units/1 Ml SUB-Q 8 units ACHS JENNA Administration Protocol Isosorbide Mononitrate 30 mg 01/24/21 10:00 01/26/21 09:54 Isosorbide Mononitrate Er 30 Mg Tab PO 30 mg QDAY JENNA Administration Lisinopril 5 mg 01/24/21 10:00 01/26/21 09:55 Lisinopril 5 Mg Tab PO 5 mg QDAY JENNA Administration Metoprolol Tartrate 25 mg 01/24/21 11:00 01/26/21 05:39 Metoprolol Tartrate 50 Mg Tab PO Not Given Q8H JENNA Morphine Sulfate 2 mg 01/23/21 23:13 Morphine 2 Mg/1 Ml Inj IV Q3H PRN Pain, Moderate (4-6) Nitroglycerin 0.4 mg 01/23/21 21:46 01/23/21 22:09 Nitroglycerin 0.4 Mg Tab Subl SL 0.4 mg .Q5MIN PRN Administration Chest Pain Ondansetron HCl 4 mg 01/23/21 23:13 Ondansetron 4 Mg/2 Ml Inj IV Q8H PRN Nausea And Vomiting Nutrition/Malnutrition Assess - Dietary Evaluation Nutrition/Malnutrition Findings: Nutrition Notes Start: 01/24/21 11:50 Freq: Status: Active Protocol: Document 01/25/21 09:07 CW (Rec: 01/25/21 09:13 [email or web address]) Nutrition Notes Need for Assessment generated from: Education Initial or Follow up Assessment Current Diagnosis Coronary Artery Disease Other Pertinent Diagnosis Hyperglycemia, STEMI Current Diet Cardiac Consistent Carbohydrate Diet Labs/Tests HgbA1c 14.7 BG 158 Pertinent Medications Lantus Humulin Height 6 ft 6 in Weight 101.4 kg [place] Body Weight (kg) 97.27 BMI 25.8 Weight Status Appropriate Subjective/Other Information F/U diet education and intakes . Per RN pt is eating 100% of meals. Attempted diet education for the second time. Pt refused diet education at this time and would prefer to speak tomorrow afternoon. Pt has the education in room on shelf but has not looked over it. Burn Absent Trauma Absent GI Symptoms None Current % PO Good (75-100%) Minimum of two criteria No physical signs of malnutrition #1 Nutrition Diagnosis Food and nutrition-related knowledge deficit As Evidenced by Signs and Symptoms pt refused education at this time. Diagnosis Progress(for reassessment Continues documentation) Is patient on ventilator? No Is Patient Ambulatory and/or Out of Bed Yes REE-([facility]-ambulatory/OOB) [ 2550.925 [id number]] Calculation Used for Recommendations [facility] Additional Notes protein needs: 81 - 101 (0.8 - 1g/kgBW) fluid needs: 1 ml/kcal or per MD Nutrition Intervention Change Diet Order: Continue Cardiac Consistent Carbohydrate diet Teaching Recipient Patient Learning Readiness Poor Teaching Methods Discussion,Handout Barriers to Learning Motivation RD phone number provided Yes Patient aware of follow up options Yes Goal #1 Understand importance of how carbohyradate intake affects health Goal #2 Meet at least 75% of kcal and protein needs via PO Anticipated Discharge Needs: Cardiac Consistent Carbohydrate diet Follow-Up By: 01/26/21 Additional Comments F/U for diet education
[2021-01-26] MEDS ORDERED: MIDAZOLAM 2 MG/2 ML INJ ONE (12:50)
[2021-01-26] MEDS ORDERED: HEPARIN 10,000 UNITS/10 ML VIAL ONE (12:50)
[2021-01-26] MEDS ORDERED: HEPARIN/NS 5000 UNIT/500ML 1,000 ML IR ONE (12:50)
[2021-01-26] MEDS ORDERED: SODIUM CHLORIDE 0.9% 500 ML 500 ML ONE (12:51)
[2021-01-26] MEDS ORDERED: VERAPAMIL 5 MG/2 ML INJ ONE (12:51)
[2021-01-26] MEDS ORDERED: LIDOCAINE (2%) 20 MG/1 ML VIAL 20 ML MDV INFILTRATI ONE (12:51)
[2021-01-26] MEDS ORDERED: fentaNYL 100 MCG/2 ML INJ ONE (12:51)
[2021-01-26] MEDS ORDERED: NITROGLYCERIN SYRINGE 3 ML ONE (12:51)
[2021-01-26] MEDS ORDERED: ONDANSETRON 4 MG/2 ML INJ ONE (13:10)
--- NOTE | 2021-01-26 13:46 | Cardiac Catherization Report ---
CARDIAC CATHETERIZATION REPORT REASON FOR PROCEDURE: The patient is a 60-year-old man who was admitted with an acute anterolateral wall ST elevation myocardial infarction. He underwent coronary stenting of the mid LAD for an ulcerated plaque and associated thrombus. Pre and post-procedure, there was distal, apical thrombotic occlusion of the LAD. He was thereafter placed on 48 hours of intravenous Aggrastat and heparin, returns to the cardiac catheterization lab today for a repeat followup angiography of the LAD. PROCEDURES: 1. Left heart catheterization. 2. Limited left coronary angiography. 3. Sedation time, start 1313, end 1320. I was present for the entire procedure and supervised the moderate sedation protocol. DESCRIPTION OF PROCEDURE: The patient was prepped and draped in a sterile fashion after informed consent. The right radial cath site was prepped and draped after a negative Eulalio's test. The right radial artery was entered using Seldinger technique followed by placement of a 6-[place] hydrophilic sheath. Routine radial cocktail was administered via the sheath. Selective left coronary angiography was performed using a 6-[place] multipurpose catheter. After multiple angiograms of the left coronary system, the catheters and the wires were then removed, sheath removed, and hemostasis achieved using a TR band. The patient was returned to the postprocedure unit in stable condition. There were no complications. CORONARY ANGIOGRAPHY: The left main and the circumflex arteries were angiographically normal. The left anterior descending artery was now found to be widely patent through its course, revealing the apical segments patent with BRET 3 flow. The mid vessel coronary stent was widely patent, no residual thrombus. The distal segment of the LAD was notable with 2 small filling defects, which were nonocclusive, but risk control field representative of still present, resolving thrombus. CONCLUSION: Distal LAD has optimally recanalized with BRET 3 flow. Mid LAD stent widely patent. RECOMMENDATION: Due to the residual small filling defects within the apical segment of the LAD, we will continue intravenous anticoagulation therapy for another 48 hours. JOB# [id number] [facility]ALK[facility]/[place]
[2021-01-26] MEDS ORDERED: traMADol 50 MG TAB PO PRN (13:57)
[2021-01-26] MEDS ORDERED: HYDROcodone/ACETAMINOPHEN 5-325 MG TAB PO PRN (13:57)
[2021-01-26] MEDS ORDERED: SODIUM CHLORIDE 0.9% 1000 ML 1,000 ML IV SCH (14:00)
--- NOTE | 2021-01-26 14:05 | Event Note ---
Date: 01/26/21 Patient underwent diagnostic coronary geography via the right radial approach, no complications. We found: 1. Mid LAD stent was widely patent with good vessel apposition and no residual filling defects. 2. The apical segment of the LAD is optimally re-cannulized with normal BRET-3 flow through the entire LAD system. 3. There were 2 small filling defects in the LAD at the apical segment, these likely represent residual nonocclusive thrombus. Recommendations: The patient will be treated with another 48 hours of intravenous heparin, we will continue other guideline directed medical therapy including dual oral antiplatelet therapy. Anticipate discharge on Sunday evening or Sunday morning.
--- NOTE | 2021-01-26 15:02 | Progress Note ---
Assessment and Plan 60 y/o male with chest pain, STEMI s/p PCI 01/26/21: stable pulm status. Will sign off. 01/25/21: Stable pulm status. Follow up cards recs. Hopeful transfer out today. 1. Dual Antiplatelet therapy 2. Goal directed care for CAD 3. Cards requests patient stay in ICU or IMCU but no beds in step down. Subjective Date of service: 01/26/21 Interval history: Successful transfer out of unit. Pulm status is stable reviewed cards notes. Objective - Constitutional Vitals: Vital Signs - 12hr 01/26/21 01/26/21 01/26/21 03:14 05:39 07:14 Temperature 98.0 F 98.1 F Pulse Rate 68 70 Pulse Rate [ From Monitor] Respiratory 13 16 Rate Blood Pressure 103/60 103/60 108/69 O2 Sat by Pulse 97 97 Oximetry 01/26/21 01/26/21 01/26/21 08:00 09:54 09:55 Temperature Pulse Rate 74 70 70 Pulse Rate [ From Monitor] Respiratory Rate Blood Pressure 108/69 108/69 O2 Sat by Pulse Oximetry 01/26/21 01/26/21 10:00 14:53 Temperature Pulse Rate 83 Pulse Rate [ 70 From Monitor] Respiratory Rate Blood Pressure 108/69 O2 Sat by Pulse Oximetry - Labs CBC & Chem 7: 01/25/21 04:51 01/24/21 06:59 Labs: Abnormal lab results 01/25/21 01/25/21 01/26/21 Range/Units 16:17 20:34 07:17 Heparin Anti-Xa Level (0.3-0.7) U.I./ml POC Glucose 259 H 273 H 307 H (70-105) mg/dL 01/26/21 Range/Units 08:28 Heparin Anti-Xa Level < 0.01 L (0.3-0.7) U.I./ml POC Glucose (70-105) mg/dL Medications & Allergies - Medications Allergies/Adverse Reactions: Allergies No Known Allergies Allergy (Verified 01/23/21 22:07) Home Medications: Home Medications Medication Instructions Recorded Confirmed Last Taken Type Aspirin EC [Ecotrin] 325 mg PO QDAY #30 tablet 01/26/21 Unknown Rx AtorvaSTATin [Lipitor] 40 mg PO QHS #30 tablet 01/26/21 Unknown Rx Clopidogrel [Plavix] 75 mg PO QDAY #30 tablet 01/26/21 Unknown Rx ISOSORBIDE MONOnitrate [Imdur ER] 30 mg PO QDAY #30 tablet 01/26/21 Unknown Rx Insulin Glargine [Lantus VIAL] 20 units SUB-Q QHS #10 ml 01/26/21 Unknown Rx Insulin NPH Human Isophane 0 unit SQ ACHS #1 vial 01/26/21 Unknown Rx [Novolin N] Metoprolol [Lopressor TAB] 50 mg PO Q12H #60 tablet 01/26/21 Unknown Rx lisinopriL [Zestril TAB] 5 mg PO QDAY #30 tablet 01/26/21 Unknown Rx Active Medications: Generic Name Dose Route Start Last Admin Trade Name Freq PRN Reason Stop Dose Admin Acetaminophen 650 mg 01/23/21 23:15 Acetaminophen 650 Mg Rect Supp NV Q4H PRN Headache Acetaminophen 650 mg 01/24/21 18:09 01/25/21 16:18 Acetaminophen 325 Mg Tab PO 650 mg Q6H PRN Administration Pain, Mild (1-3) Hydrocodone Bitart/Acetaminophen 1 each 01/23/21 23:45 Hydrocodone/Acetaminophen 5-325 Mg Tab PO Q6H PRN Pain, Moderate (4-6) Hydrocodone Bitart/Acetaminophen 1 each 01/26/21 13:57 Hydrocodone/Acetaminophen 5-325 Mg Tab PO Q4H PRN Pain, Moderate (4-6) Aspirin 325 mg 01/24/21 10:00 01/26/21 09:54 Aspirin Ec 325 Mg Tab PO 325 mg QDAY JENNA Administration Atorvastatin Calcium 40 mg 01/24/21 22:00 01/25/21 22:22 Atorvastatin 40 Mg Tab PO 40 mg QHS JENNA Administration Clopidogrel Bisulfate 75 mg 01/24/21 10:00 01/26/21 09:55 Clopidogrel 75 Mg Tab PO 75 mg QDAY JENNA Administration Dextrose 50 ml 01/23/21 23:11 Dextrose 50% In Water (25gm) 50 Ml Syringe IV Q30MIN PRN Hypoglycemia Protocol Famotidine 40 mg 01/24/21 22:00 01/25/21 22:22 Famotidine 20 Mg Tab PO 40 mg QHS JENNA Administration Heparin Sodium (Porcine) 4,000 unit 01/23/21 23:45 01/26/21 09:38 Heparin 10,000 Units/10 Ml Vial 40 unit/kg (4000 unit) 4,000 unit IV Administration Q6H PRN Anti-Xa Assay<0.1 units/ml Sodium Chloride 500 mls @ 50 mls/hr 01/26/21 10:30 Nacl 0.9% 500 Ml IV 01/26/21 20:29 DIRECT JENNA Sodium Chloride 1,000 mls @ 100 mls/hr 01/26/21 14:00 Nacl 0.9% 1000 Ml IV 01/26/21 19:59 DIRECT JENNA Heparin Sodium/Sodium Chloride 25,000 unit in 500 mls @ 20 mls/hr 01/26/21 14:02 Heparin/ 0.45% Nacl-25,000 Unit/500 Ml IV 01/28/21 13:59 TITRATE [facility] Protocol 1,000 UNITS/HR Insulin Glargine 20 units 01/26/21 22:00 Insulin Glargine 100 Units/Ml SUB-Q QHS [facility] Insulin Human Regular 0 units 01/24/21 11:30 01/26/21 13:32 Insulin Regular, Human 100 Units/1 Ml SUB-Q Not Given ACHS [facility] Protocol Isosorbide Mononitrate 30 mg 01/24/21 10:00 01/26/21 09:54 Isosorbide Mononitrate Er 30 Mg Tab PO 30 mg QDAY [facility] Administration Lisinopril 2.5 mg 01/26/21 14:30 01/26/21 14:53 Lisinopril 5 Mg Tab PO 2.5 mg QDAY [facility] Administration Metoprolol Tartrate 25 mg 01/24/21 11:00 01/26/21 12:28 Metoprolol Tartrate 50 Mg Tab PO Not Given Q8H [facility] Morphine Sulfate 2 mg 01/23/21 23:13 Morphine 2 Mg/1 Ml Inj IV Q3H PRN Pain, Moderate (4-6) Nitroglycerin 0.4 mg 01/23/21 21:46 01/23/21 22:09 Nitroglycerin 0.4 Mg Tab Subl SL 0.4 mg .Q5MIN PRN Administration Chest Pain Ondansetron HCl 4 mg 01/23/21 23:13 Ondansetron 4 Mg/2 Ml Inj IV Q8H PRN Nausea And Vomiting Tramadol HCl 50 mg 01/26/21 13:57 Tramadol 50 Mg Tab PO Q4H PRN Pain, Mild (1-3) HEART Score - HEART Score EKG: Non-specific Age: 45-65 Risk factors: 1-2 risk factors Troponin: Troponin T 0.230 ng/mL (0.00-0.029) H* D 01/24/21 06:59 Troponin: 1-3x normal limit - Critical Actions Critical Actions: 4-6 pts:12-16.6% risk of adverse cardiac event. Should be admitted (PATIENT IS BEING EVALUATED FOR CAD)
[2021-01-26] MEDS ORDERED: INSULIN GLARGINE 100 UNITS/ML SUB-Q SCH (22:00)
[2021-01-26] MEDS: FAMOTIDINE 20 MG TAB PO SCH (22:19)
[2021-01-26] MEDS: INSULIN GLARGINE 100 UNITS/ML SUB-Q SCH (22:20)
[2021-01-27] MEDS: HEPARIN/ 0.45% NACL DRIP 25,000 UNIT/500 ML BAG IV SCH ×2 (01:08→12:37)
[2021-01-27] MEDS: METOPROLOL TARTRATE 50 MG TAB PO SCH ×3 (04:35→21:27)
[2021-01-27 05:31] LABS: Hematocrit 38.7 % (35.5-45.6); Hemoglobin 12.9 gm/dl (11.8-15.2); Mean Corpuscular HGB Conc 33 % (32-34); Mean Corpuscular Volume 92 fl (84-94); Platelet Count 182 K/mm3 (140-440); Red Blood Count 4.19 M/mm3 (3.65-5.03); Red Cell Distribution Width 12.4 % (13.2-15.2)
[2021-01-27 05:39] LABS: BUN/Creatinine Ratio 13; Blood Urea Nitrogen 10 mg/dL (9-20); Hemolysis Index 14
[2021-01-27] MEDS: CLOPIDOGREL 75 MG TAB PO SCH (09:52)
[2021-01-27] MEDS: ASPIRIN EC 325 MG TAB PO SCH (09:55)
[2021-01-27] MEDS: INSULIN REGULAR, HUMAN 100 UNITS/1 ML SUB-Q SCH ×4 (09:57→22:35)
--- NOTE | 2021-01-27 10:20 | Progress Note ---
Assessment and Plan - Patient Problems (1) ST elevation myocardial infarction (STEMI) of anterolateral wall Current Visit: Yes Status: Acute Plan to address problem: Status post acute anterolateral wall myocardial infarction, treated with successful primary angioplasty and stenting. Distal embolic occlusion of the LAD was treated with intravenous antiplatelet and anticoagulant therapy, no follow-up cardiac catheterization has nearly completely resolved with r ecanalization of the distal vessel. He will be treated with intravenous heparin for another 24 hours, anticipate cardiac discharge tomorrow afternoon. We will order a left leg arterial Doppler, and the internal medicine service is evaluating his left ankle and foot pain for management of likely arthritis. Subjective Date of service: 01/27/21 Interval history: Patient is comfortable, no cardiac complaints, no chest pain or shortness of breath. His major complaint today is left ankle and right foot arthritic type pain. There is no significant swelling. The left leg distal pulses are normal. Objective Vital Signs Temp Pulse Resp BP Pulse Ox 01/27/21 09:50 61 109/72 01/27/21 09:07 95 01/27/21 07:32 98.2 F 59 L 18 109/72 100 01/27/21 04:17 98.1 F 62 18 118/76 96 01/26/21 23:14 98.1 F 64 18 110/63 95 01/26/21 22:00 100 01/26/21 21:04 61 94/57 01/26/21 20:11 61 18 94/57 92 01/26/21 19:51 62 18 99/53 95 01/26/21 19:32 97.5 F L 63 17 110/61 96 01/26/21 16:00 87 01/26/21 15:55 98.0 F 68 15 99/57 94 01/26/21 14:53 83 108/69 - Physical Examination General: No Apparent Distress HEENT: Positive: PERRL Neck: Positive: neck supple Cardiac: Positive: Reg Rate and Rhythm Lungs: Positive: clear to auscultation Neuro: Positive: Grossly Intact Abdomen: Positive: Soft Skin: Positive: Clear Extremities: Absent: edema - Labs and Meds CBC 01/27/21 Range/Units 04:49 WBC 4.9 (4.5-11.0) K/mm3 RBC 4.19 (3.65-5.03) M/mm3 Hgb 12.9 (11.8-15.2) gm/dl Hct 38.7 (35.5-45.6) % Plt Count 182 (140-440) K/mm3 Comprehensive Metabolic Panel 01/27/21 Range/Units 04:49 Sodium 137 (137-145) mmol/L Potassium 4.1 (3.6-5.0) mmol/L Chloride 101.5 (98-107) mmol/L Carbon Dioxide 27 (22-30) mmol/L BUN 10 (9-20) mg/dL Creatinine 0.8 (0.8-1.3) mg/dL Glucose 227 H (75-100) mg/dL Calcium 9.0 (8.4-10.2) mg/dL
--- NOTE | 2021-01-27 10:23 | Progress Note ---
Assessment and Plan Assessment and plan: This is a 60-year-old male who has current tobacco and EtOH abuse who presents to the emergency department on 01/23 with complaints of chest tightness with radiation down both arms since 11 AM on 01/23 associated with nausea and lightheadedness which was relieved after [address] in the [facility] department. EKG showed STEMI and he was taken to the Medical Laboratory Technician with Dr. Kelley where they found a hazy ulcerated plaque in the mid segment of the LAD associated with significant residual thrombus and the distal and apical segment of the LAD were occluded by distal thrombus also. Patient is status post a drug-eluting stent to primary lesion in the mid LAD. The patient was placed on intravenous anticoagulant interventions antiplatelet therapy to enhance resolution of his distal embolic LAD lesion. Left ventricular angiography showed preserved LV systolic function with ejection fraction of 50 to 55%. Patient was admitted to the hospital service with consult to cardiology and CC STEMI Diabetes mellitus with hyperglycemia Pseudohyponatremia Tobacco abuse EtOH abuse Left Foot Pain. 01/24: Patient remains on Aggrastat and heparin drip. Cardiology requests the patient stay in ICU. Patient says that he is is not have any chest pain, respiratory distress, nausea or vomiting. No acute events reported overnight. 01/25: Patient remains on Aggrastat and heparin drip. Patient will be transferred to 4 Tele later today pending covid results. Cardio plans to take patient back to metallurgy laboratory technician later this week. No acute events reported overnight. Patient complains of occasional headaches relieved with tylenol. 01/26: Patient clinically stable at this time. Aggrastat was discontinued this morning there was a brief period of time when heparin drip was also discontinued. This has been restarted this morning. Discussed with content management consultant patient will go back to Medical Laboratory Technician for reevaluation considering distal thrombus. At this patient is a the patient may be discharged today. 15 minutes has been spent on counseling on tobacco and alcohol use patient verbalized understanding. Patient's diagnosis of diabetes has been discussed with the patient also. Will ensure appropriate medications and discharge. Hemoglobin A1c was greater than 14 01/27: Yesterday patient underwent diagnostic coronary geography via the right radial approach, no complications. We found: 1. Mid LAD stent was widely patent with good vessel apposition and no residual filling defects. 2. The apical segment of the LAD is optimally re-cannulized with normal BRET-3 flow through the entire LAD system. 3. There were 2 small filling defects in the LAD at the apical segment, these likely represent residual nonocclusive thrombus. Recommendations: The patient will be treated with another 48 hours of intravenous heparin, we will continue other guideline directed medical therapy including dual oral antiplatelet therapy. Anticipate discharge on Sunday evening or Sunday morning. The above is per cardiology documentation. This morning he complains of left ankle pain. Will check uric acid. Will obtain imaging x-ray of the foot. I will also do arterial Doppler. Continue pain control as advised. May need PT evaluation S/p PCI with JIMBO to LAD -On heparin drip -SSI -Hemoglobin A1c 14 -Long-acting insulin -Aspirin, atorvastatin, Plavix, lisinopril, metoprolol -As needed nitroglycerin DVT/GI prophylaxis: Systemic anticoagulation with heparin, SCDs to bilateral LE while in bed, PPI Dispo: Transfer to floor History Interval history: Patient seen and examined. Complains of pain to the left ankle area otherwise no other complaints no shortness of breath or chest pain or headaches. Hospitalist Physical - Physical exam Narrative exam: VITAL SIGNS: Reviewed. GENERAL: The patient appears normally developed, Vital signs as documented. HEAD: No signs of head trauma. EYES: Pupils are equal. Extraocular motions intact. EARS: Hearing grossly intact. MOUTH: Oropharynx is normal. NECK: No adenopathy, no JVD. CHEST: Chest with clear breath sounds bilaterally. No wheezes, rales, or rhonchi. CARDIAC: Regular rate and rhythm. S1 and S2, without murmurs, gallops, or rubs. VASCULAR: No Edema. Peripheral pulses normal and equal in all extremities. ABDOMEN: Soft, non tender and non distended. No rebound or guarding, and no masses palpated. Bowel Sounds normal. MUSCULOSKELETAL: Tender to touch to left foot area. Otherwise pulses are intact. Good range of motion of all major joints. Extremities without clubbing, cyanosis or edema. NEUROLOGIC EXAM: Alert and oriented x 3 No focal sensory or strength deficits. Speech normal. Follows commands. PSYCHIATRIC: Mood normal. SKIN: detail exam as documented in skin assessment - Constitutional Vitals: Temp Pulse Resp BP Pulse Ox 98.2 F 61 18 109/72 95 01/27/21 07:32 01/27/21 09:50 01/27/21 07:32 01/27/21 09:50 01/27/21 09:07 General appearance: Present: no acute distress HEART Score - HEART Score EKG: Non-specific Age: 45-65 Risk factors: 1-2 risk factors Troponin: Troponin T 0.230 ng/mL (0.00-0.029) H* D 01/24/21 06:59 Troponin: 1-3x normal limit - Critical Actions Critical Actions: 4-6 pts:12-16.6% risk of adverse cardiac event. Should be admitted (PATIENT IS BEING EVALUATED FOR CAD) Results - Labs CBC & Chem 7: 01/27/21 04:49 01/27/21 04:49 Labs: Laboratory Last Values WBC 4.9 K/mm3 (4.5-11.0) 01/27/21 04:49 RBC 4.19 M/mm3 (3.65-5.03) 01/27/21 04:49 Hgb 12.9 gm/dl (11.8-15.2) 01/27/21 04:49 Hct 38.7 % (35.5-45.6) 01/27/21 04:49 MCV 92 fl (84-94) 01/27/21 04:49 MCH 31 pg (28-32) 01/27/21 04:49 MCHC 33 % (32-34) 01/27/21 04:49 RDW 12.4 % (13.2-15.2) L 01/27/21 04:49 Plt Count 182 K/mm3 (140-440) 01/27/21 04:49 Lymph % (Auto) 33.0 % (13.4-35.0) 01/24/21 06:59 [place] % (Auto) 7.9 % (0.0-7.3) H 01/24/21 06:59 Eos % (Auto) 1.1 % (0.0-4.3) 01/24/21 06:59 Baso % (Auto) 0.7 % (0.0-1.8) 01/24/21 06:59 Lymph # (Auto) 1.9 K/mm3 (1.2-5.4) 01/24/21 06:59 [place] # (Auto) 0.5 K/mm3 (0.0-0.8) 01/24/21 06:59 Eos # (Auto) 0.1 K/mm3 (0.0-0.4) 01/24/21 06:59 Baso # (Auto) 0.0 K/mm3 (0.0-0.1) 01/24/21 06:59 Seg Neutrophils % 57.3 % (40.0-70.0) 01/24/21 06:59 Seg Neutrophils # 3.3 K/mm3 (1.8-7.7) 01/24/21 06:59 PT 14.4 Sec. (12.2-14.9) 01/24/21 00:43 INR 1.13 (0.87-1.13) 01/24/21 00:43 APTT 142.3 Sec. (24.2-36.6) H* 01/24/21 00:43 Heparin Anti-Xa Level 0.28 U.I./ml (0.3-0.7) L 01/27/21 07:14 Sodium 137 mmol/L (137-145) 01/27/21 04:49 Potassium 4.1 mmol/L (3.6-5.0) 01/27/21 04:49 Chloride 101.5 mmol/L (98-107) 01/27/21 04:49 Carbon Dioxide 27 mmol/L (22-30) 01/27/21 04:49 Anion Gap 13 mmol/L 01/27/21 04:49 BUN 10 mg/dL (9-20) 01/27/21 04:49 Creatinine 0.8 mg/dL (0.8-1.3) 01/27/21 04:49 Estimated GFR > 60 ml/min 01/27/21 04:49 BUN/Creatinine Ratio 13 % 01/27/21 04:49 Glucose 227 mg/dL (75-100) H 01/27/21 04:49 POC Glucose 251 mg/dL (70-105) H 01/26/21 21:58 Hemoglobin A1c 14.7 % (4-6) H 01/25/21 04:51 Calcium 9.0 mg/dL (8.4-10.2) 01/27/21 04:49 Total Creatine Kinase 184 units/L (55-170) H 01/23/21 Unknown CK-MB (CK-2) 7.4 ng/mL (0.0-4.0) H 01/23/21 Unknown CK-MB (CK-2) Rel Index 4.0 (0-4) 01/23/21 Unknown Troponin T 0.230 ng/mL (0.00-0.029) H* D 01/24/21 06:59 Triglycerides 246 mg/dL (2-149) H 01/23/21 Unknown Cholesterol 238 mg/dL (50-199) H 01/23/21 Unknown LDL Cholesterol Direct 178 mg/dL (50-130) H 01/23/21 Unknown HDL Cholesterol 46 mg/dL (40-59) 01/23/21 Unknown Cholesterol/HDL Ratio 5.17 % 01/23/21 Unknown Coronavirus (PCR) Negative (Negative) 01/25/21 Unknown Blood Type A POSITIVE 01/23/21 Unknown Antibody Screen Negative 01/23/21 Unknown Saucedo/IV: Voiding Method Urinal Active Medications - Current Medications Current Medications: Generic Name Dose Route Start Last Admin Trade Name Freq PRN Reason Stop Dose Admin Hydrocodone Bitart/Acetaminophen 1 each 01/26/21 13:57 Hydrocodone/Acetaminophen 5-325 Mg Tab PO Q4H PRN Pain, Moderate (4-6) Aspirin 325 mg 01/24/21 10:00 01/27/21 09:55 Aspirin Ec 325 Mg Tab PO 325 mg QDAY JENNA Administration Atorvastatin Calcium 40 mg 01/24/21 22:00 01/26/21 22:20 Atorvastatin 40 Mg Tab PO 40 mg QHS JENNA Administration Clopidogrel Bisulfate 75 mg 01/24/21 10:00 01/27/21 09:52 Clopidogrel 75 Mg Tab PO 75 mg QDAY JENNA Administration Dextrose 50 ml 01/23/21 23:11 Dextrose 50% In Water (25gm) 50 Ml Syringe IV Q30MIN PRN Hypoglycemia Protocol Famotidine 40 mg 01/24/21 22:00 01/26/21 22:19 Famotidine 20 Mg Tab PO 40 mg QHS JENNA Administration Heparin Sodium (Porcine) 4,000 unit 01/23/21 23:45 01/26/21 09:38 Heparin 10,000 Units/10 Ml Vial 40 unit/kg (4000 unit) 4,000 unit IV Administration Q6H PRN Anti-Xa Assay<0.1 units/ml Heparin Sodium/Sodium Chloride 25,000 unit in 500 mls @ 20 mls/hr 01/26/21 14:02 01/27/21 01:08 Heparin/ 0.45% Nacl-25,000 Unit/500 Ml IV 01/28/21 13:59 1,100 units/hr TITRATE JENNA 22 mls/hr Administration Protocol 1,000 UNITS/HR Insulin Glargine 30 units 01/26/21 22:00 01/26/21 22:20 Insulin Glargine 100 Units/Ml SUB-Q 30 units QHS JENNA Administration Insulin Human Regular 0 units 01/24/21 11:30 01/27/21 09:57 Insulin Regular, Human 100 Units/1 Ml SUB-Q 4 units ACHS [facility] Administration Protocol Isosorbide Mononitrate 30 mg 01/24/21 10:00 01/27/21 09:50 Isosorbide Mononitrate Er 30 Mg Tab PO 30 mg QDAY JENNA Administration Lisinopril 2.5 mg 01/26/21 14:30 01/26/21 14:53 Lisinopril 5 Mg Tab PO 2.5 mg QDAY [facility] Administration Metoprolol Tartrate 25 mg 01/24/21 11:00 01/27/21 04:35 Metoprolol Tartrate 50 Mg Tab PO 25 mg Q8H JENNA Administration Morphine Sulfate 2 mg 01/23/21 23:13 Morphine 2 Mg/1 Ml Inj IV Q3H PRN Pain, Moderate (4-6) Nitroglycerin 0.4 mg 01/23/21 21:46 01/23/21 22:09 Nitroglycerin 0.4 Mg Tab Subl SL 0.4 mg .Q5MIN PRN Administration Chest Pain Ondansetron HCl 4 mg 01/23/21 23:13 Ondansetron 4 Mg/2 Ml Inj IV Q8H PRN Nausea And Vomiting Tramadol HCl 50 mg 01/26/21 13:57 Tramadol 50 Mg Tab PO Q4H PRN Pain, Mild (1-3) Nutrition/Malnutrition Assess - Dietary Evaluation Nutrition/Malnutrition Findings: Nutrition Notes Start: 01/24/21 11:50 Freq: Status: Active Protocol: Document 01/26/21 13:39 SINA (Rec: 01/26/21 13:41 SINA [id number]) Nutrition Notes Initial or Follow up Brief Note Current Diagnosis Coronary Artery Disease, Diabetes Other Pertinent Diagnosis Hyperglycemia, STEMI Current Diet Cardiac/Consistent Carbohydrate Diet Subjective/Other Information FU for new onset DM diet education. Pt reports new onset DM and has had some generalized DM diet education in the past at [facility]. Pt had to go to PT at time of visit. Following two visits- pt out of room. Nutrition Intervention Follow-Up By: 01/27/21 Additional Comments FU for diet education
--- NOTE | 2021-01-27 14:11 | XRay Report ---
LEFT ANKLE 3 VIEWS INDICATION / CLINICAL INFORMATION: Ankle Pain COMPARISON: None available. FINDINGS: BONES / JOINT(S): No acute fracture or subluxation. No significant arthritis. SOFT TISSUES: No significant abnormality. ADDITIONAL FINDINGS: None. LEFT FOOT 3 VIEWS INDICATION / CLINICAL INFORMATION: Foot pain. COMPARISON: None available. FINDINGS: BONES / JOINT(S): No acute fracture or subluxation. No significant arthritis. SOFT TISSUES: No significant abnormality. ADDITIONAL FINDINGS: None. Signer Name: Vj Hernandez MD Signed: 01/27/2021 2:06 PM Workstation Name: [id number]
[2021-01-27 14:56] LABS: Alanine Aminotransferase 36 units/L (7-56); Albumin 3.6 g/dL (3.9-5)
[2021-01-27 15:00] LABS: Bilirubin,Direct < 0.2 mg/dL (0-0.2)
[2021-01-27] MEDS: LISINOPRIL 5 MG TAB PO SCH (20:56)
[2021-01-27] MEDS: FAMOTIDINE 20 MG TAB PO SCH (21:28)
[2021-01-27] MEDS: INSULIN GLARGINE 100 UNITS/ML SUB-Q SCH (22:36)
[2021-01-28] MEDS: METOPROLOL TARTRATE 50 MG TAB PO SCH ×2 (04:00→11:47)
[2021-01-28] MEDS: INSULIN REGULAR, HUMAN 100 UNITS/1 ML SUB-Q SCH ×2 (08:59→17:58)
--- NOTE | 2021-01-28 10:10 | Electrocardiograph Report ---
[facility] Test Date: 2021-01-24 Test Time: 09:12:02 Pat Name: ANTONI YOUNG Department: Room: A461 Gender: M Performance Architect: NEERAJ : 1960 Requested By: MONICA VOSS Order Number: [id number] Reading MD: Monica Voss Measurements Intervals [place] Rate: 62 P: 18 [place]: 178 QRS: -47 QRSD: 107 T: 34 QT: 389 QTc: 395 Interpretive Statements Sinus rhythm LEFT AXIS DEVIATION Compared to ECG 01/23/2021 21:30:10 ST (T wave) deviation now present Acute myocardial infarct finding no longer present Electronically Signed On 01-28-2021 10:10:38 EDT by Monica Voss
--- NOTE | 2021-01-28 10:20 | Vascular Lab Report ---
DUPLEX DOPPLER LOWER EXTREMITY ARTERIAL, LEFT INDICATION: pain. TECHNIQUE: Arterial duplex examination of the left lower extremity performed using B-mode, color flow and spectr al Doppler assessment. FINDINGS: LEFT: Common Femoral Artery: PSV 80 cm/sec. Triphasic waveform. Proximal SFA: PSV 101 cm/sec. Triphasic waveform. Mid SFA: PSV 116 cm/sec. Triphasic waveform. Distal SFA: PSV 100 cm/sec. Triphasic waveform. Popliteal artery: PSV 103 cm/sec. Triphasic waveform. Posterior tibial artery: PSV 83 cm/sec. Triphasic waveform. Dorsalis Pedis Artery: PSV 125 cm/sec. Biphasic waveform. IMPRESSION: 1. Transition from triphasic to biphasic waveform moving from the ACID RECOVERY OPERATOR to the DPA may be seen with a m ild upstream stenosis. Otherwise unremarkable exam and no critical stenosis. Doppler Waveform: * Triphasic is normal. * Biphasic is abnormal if clear transition from triphasic signal along vascular tree. * Monophasic is abnormal. Signer Name: Jose Renae MD Signed: 01/28/2021 10:15 AM Workstation Name: [id number]
--- NOTE | 2021-01-28 10:25 | Electrocardiograph Report ---
[facility] Test Date: 2021-01-25 Test Time: 07:26:58 Pat Name: ANTONI YOUNG Department: Room: A461 Gender: M Regional Sales Consultant: NEERAJ : 1960 Requested By: KINJAL LEAL Order Number: [id number] Reading MD: Monica Kelley Measurements Intervals [place] Rate: 67 P: 29 MT: 166 QRS: -49 QRSD: 107 T: 37 QT: 458 QTc: 483 Interpretive Statements Sinus rhythm LEFT AXIS DEVIATION T wave inversions consistent with acute ischemia, anterolateral lds Compared to ECG 01/24/2021 09:12:02 More prominent T wave changes Electronically Signed On 01-28-2021 10:24:54 EDT by Monica Kelley
[2021-01-28] MEDS: ASPIRIN EC 325 MG TAB PO SCH (11:47)
[2021-01-28] MEDS: CLOPIDOGREL 75 MG TAB PO SCH (11:47)
[2021-01-28] MEDS: LISINOPRIL 5 MG TAB PO SCH (11:47)
--- NOTE | 2021-01-28 14:00 | Progress Note ---
Assessment and Plan - Patient Problems (1) ST elevation myocardial infarction (STEMI) of anterolateral wall Current Visit: Yes Status: Acute Plan to address problem: Status post primary angioplasty and stenting of the LAD for acute anterior wall STEMI, doing well after extended anticoagulant and antiplatelet therapy for extensive intraluminal thrombus. We will discontinue heparin today, patient is stable for cardiac discharge. In addition to dual oral antiplatelet therapy with aspirin and Plavix, he will be on beta-precious, ANTHONY inhibitor, statin, oral nitrates and aggressive risk factor modification. Subjective Date of service: 01/28/21 Interval history: Patient is comfortable, no cardiac complaints, also states that his left foot pain has resolved. Left leg arterial Doppler was reported negative. He has a stable sinus rhythm at 68, and blood pressure is stable. Objective Vital Signs Temp Pulse Resp BP Pulse Ox 01/28/21 07:14 98.7 F 68 18 107/60 96 01/28/21 03:59 98.0 F 63 18 115/64 98 01/28/21 01:06 98.8 F 67 18 109/62 94 01/27/21 21:27 65 101/64 01/27/21 21:20 20 101/64 01/27/21 19:39 98.2 F 60 18 104/64 96 01/27/21 16:00 66 01/27/21 15:39 98.3 F 62 18 96/51 94 - Physical Examination General: No Apparent Distress HEENT: Positive: PERRL Neck: Positive: neck supple Cardiac: Positive: Reg Rate and Rhythm Lungs: Positive: clear to auscultation Neuro: Positive: Grossly Intact Abdomen: Positive: Soft Skin: Positive: Clear Extremities: Absent: edema - Labs and Meds Cardiac Enzymes 01/27/21 Range/Units 04:49 AST 46 H (5-40) units/L Comprehensive Metabolic Panel 01/27/21 Range/Units 04:49 Direct Bilirubin < 0.2 (0-0.2) mg/dL Indirect Bilirubin 0.2 mg/dL AST 46 H (5-40) units/L ALT 36 (7-56) units/L Alkaline Phosphatase 69 (35-129) units/L Total Protein 6.6 (6.3-8.2) g/dL Albumin 3.6 L (3.9-5) g/dL
--- NOTE | 2021-01-28 16:23 | Discharge Summary ---
Providers - Providers Date of Admission: 01/23/21 22:30 Date of discharge: 01/28/21 Attending physician: HOLLI SALAZAR 01/23/21 Consult to Cardiac Rehabilitation [CONS] Routine Reason For Exam: post pci 01/23/21 22:22 Consult to Physician [CONS] Urgent Comment: Consulting Provider: XU VOSS Physician Instructions: Reason For Exam: chest pain, unstable angina 01/24/21 11:20 Consult to Dietitian/Nutrition [CONS] Routine Physician Instructions: Reason For Exam: Reason for Consult: Diet education 01/26/21 01:00 Physical Therapy Evaluation and Treat [CONS] Routine Comment: Reason For Exam: post pci/weakness 01/26/21 10:00 Occupational Therapy Evaluate and Treat [CONS] Routine Comment: Reason For Exam: post pci/weakness 01/26/21 13:57 Consult to Cardiac Rehabilitation [CONS] Routine Reason For Exam: Cardiac Rehab Evaluation Primary care physician: KRYSTINA CHRISTOPHER Hospitalization Condition: Stable Hospital course: Assessment and Plan Assessment and plan: This is a 60-year-old male who has current tobacco and EtOH abuse who presents to the emergency department on 01/23 with complaints of chest tightness with radiation down both arms since 11 AM on 01/23 associated with nausea and lightheadedness which was relieved after 2 sublingual nitroglycerin in the [facility]. EKG showed STEMI and he was taken to the Director Of Contracts with Dr. Voss where they found a hazy ulcerated plaque in the mid segment of the LAD associated with significant residual thrombus and the distal and apical segment of the LAD were occluded by distal thrombus also. Patient is status post a drug-eluting stent to primary lesion in the mid LAD. The patient was placed on intravenous anticoagulant interventions antiplatelet therapy to enhance resolution of his distal embolic LAD lesion. Left ventricular angiography showed preserved LV systolic function with ejection fraction of 50 to 55%. Patient was admitted to the hospital service with consult to cardiology and CC STEMI Diabetes mellitus with hyperglycemia Pseudohyponatremia Tobacco abuse EtOH abuse Left Foot Pain. 01/24: Patient remains on Aggrastat and heparin drip. Cardiology requests the patient stay in ICU. Patient says that he is is not have any chest pain, respiratory distress, nausea or vomiting. No acute events reported overnight. 01/25: Patient remains on Aggrastat and heparin drip. Patient will be transferred to 4 Tele later today pending covid results. Cardio plans to take patient back to physical laboratory assistant later this week. No acute events reported overnight. Patient complains of occasional headaches relieved with tylenol. 01/26: Patient clinically stable at this time. Aggrastat was discontinued this morning there was a brief period of time when heparin drip was also discontinued. This has been restarted this morning. Discussed with sdc teacher patient will go back to Director Of Contracts for reevaluation considering distal thrombus. At this patient is a the patient may be discharged today. 15 minutes has been spent on counseling on tobacco and alcohol use patient verbalized understanding. Patient's diagnosis of diabetes has been discussed with the patient also. Will ensure appropriate medications and discharge. Hemoglobin A1c was greater than 14 01/27: Yesterday patient underwent diagnostic coronary geography via the right radial approach, no complications. We found: 1. Mid LAD stent was widely patent with good vessel apposition and no residual filling defects. 2. The apical segment of the LAD is optimally re-cannulized with normal BRET-3 flow through the entire LAD system. 3. There were 2 small filling defects in the LAD at the apical segment, these likely represent residual nonocclusive thrombus. Recommendations: The patient will be treated with another 48 hours of intravenous heparin, we will continue other guideline directed medical therapy including dual oral antiplatelet therapy. Anticipate discharge on Sunday evening or Sunday morning. The above is per cardiology documentation. This morning he complains of left ankle pain. Will check uric acid. Will obtain imaging x-ray of the foot. I will also do arterial Doppler. Continue pain control as advised. May need PT evaluation S/p PCI with JIMBO to LAD -On heparin drip -SSI -Hemoglobin A1c 14 -Long-acting insulin -Aspirin, atorvastatin, Plavix, lisinopril, metoprolol -As needed nitroglycerin DVT/GI prophylaxis: Systemic anticoagulation with heparin, SCDs to bilateral LE while in bed, PPI Dispo: Transfer to floor 01/28/2021 Patient doing well Finished heparin drip Patient eager to go home Disposition: DC-01 TO HOME OR SELFCARE Final Discharge Diagnosis (Prints w/discharge instructions): STEMI. Hypertension. IDDM. Hyperlipidemia Time spent for discharge: 35 minutes - Discharge Diagnoses (1) STEMI (ST elevation myocardial infarction) Status: Acute Qualifiers: Involved coronary artery: LAD coronary artery Qualified Code(s): I21.02 - ST elevation (STEMI) myocardial infarction involving left anterior descending coronary artery Comment: Patient has a drug-eluting stent in LAD Patient to continue aspirin and Plavix at home and follow-up with cardiology (2) IDDM (insulin dependent diabetes mellitus) Status: Acute Comment: Patient to be discharged on long-acting insulin and short-acting insulin. (3) HLD (hyperlipidemia) Status: Chronic Qualifiers: Hyperlipidemia type: unspecified Qualified Code(s): E78.5 - Hyperlipidemia, unspecified Comment: Continue statins (4) Hypertension Status: Chronic Qualifiers: Hypertension type: essential hypertension Qualified Code(s): I10 - Essential (primary) hypertension Comment: Continue antihypertensives Core Measure Documentation - Palliative Care Palliative Care/ Comfort Measures: Not Applicable - Core Measures Any of the following diagnoses?: acute AZ - Acute [place] Discharge Requirements Aspirin at discharge: Yes ANTHONY/ARB for LVSD if EF <40%: Yes Beta precious at discharge: Yes Statin for LDL = or >100 mg/dl on DC: Yes Exam - Constitutional Vitals: Temp Pulse Resp BP Pulse Ox 98.3 F 65 18 105/60 95 01/28/21 11:06 01/28/21 11:06 01/28/21 11:06 01/28/21 11:06 01/28/21 11:06 General appearance: Present: no acute distress, well-nourished - EENT Eyes: Present: PERRL ENT: hearing intact, clear oral mucosa - Neck Neck: Present: supple, normal ROM - Respiratory Respiratory effort: normal Respiratory: bilateral: CTA - Cardiovascular Heart rate: 78 Rhythm: regular Heart Sounds: Present: S1 & S2. Absent: rub, click - Extremities Extremities: no ischemia, pulses intact, pulses symmetrical, No edema Peripheral Pulses: within normal limits - Abdominal General gastrointestinal: Present: soft, non-tender, non-distended, normal bowel sounds Male genitourinary: Present: normal - Integumentary Integumentary: Present: clear, warm, dry - Musculoskeletal Musculoskeletal: gait normal, strength equal bilaterally - Psychiatric Psychiatric: appropriate mood/affect, intact judgment & insight - Neurologic Neurologic: CNII-XII intact, moves all extremities - Allied Health Allied health notes reviewed: nursing, case management Plan Activity: no restrictions Diet: low salt Follow up with: XU VOSS MD [Staff Physician] - 7 Days KRYSTINA CHRISTOPHER MD [Primary Care Provider] - 3-5 Days Forms: CardCat PCI D/C Instructions Prescriptions: Aspirin EC [Ecotrin] 325 mg PO QDAY #30 tablet Insulin Lispro [Humalog 100 UNITS/ML Kwikpen] 5 units SQ AC #5 pen ISOSORBIDE MONOnitrate [Imdur ER] 30 mg PO QDAY #30 tablet Insulin Glargine [Lantus VIAL] 20 units SUB-Q QHS #10 ml Insulin Glargine [Lantus VIAL] 30 units SUB-Q QHS #5 pen AtorvaSTATin [Lipitor] 40 mg PO QHS #30 tablet Metoprolol [Lopressor TAB] 50 mg PO Q12H #60 tablet Insulin NPH Human Isophane [Novolin N] 0 unit SQ ACHS #1 vial Famotidine [Pepcid] 20 mg PO BID #60 tablet Clopidogrel [Plavix] 75 mg PO QDAY #30 tablet traMADoL [Ultram 50 MG tab] 50 mg PO BID PRN #30 tablet PRN Reason: Pain, Mild (1-3) lisinopriL [Zestril TAB] 5 mg PO QDAY #30 tablet lisinopriL [Zestril TAB] 2.5 mg PO QDAY #90 tablet Other Discharge Orders: Glucometer (Amb) Location: None Selected Glucometer supplies[Amb] Location: None Selected
[2021-01-28 19:03] VITALS: BP 97/62
== END 2021-01-28 18:15 | disposition home or self-care (01) | DRG 247 ==
LOC: ED 19:26 → CC1 22:30 → 4A 01-25 17:59
PROVIDERS: ADMIT Internal Medicine; ATTEND Internal Medicine
PROC: 027034Z Dilation of Coronary Artery, One Artery with Drug-eluting Intraluminal Device, Percutaneous Approach (ICD-10-PCS; principal; 2021-01-23)
PROC: 4A023N7 Measurement of Cardiac Sampling and Pressure, Left Heart, Percutaneous Approach (ICD-10-PCS; 2021-01-23)
PROC: B2111ZZ Fluoroscopy of Multiple Coronary Arteries using Low Osmolar Contrast (ICD-10-PCS; 2021-01-23)
PROC: B2151ZZ Fluoroscopy of Left Heart using Low Osmolar Contrast (ICD-10-PCS; 2021-01-23)
PROC: 4A023N7 Measurement of Cardiac Sampling and Pressure, Left Heart, Percutaneous Approach (ICD-10-PCS; 2021-01-26)
PROC: B2111ZZ Fluoroscopy of Multiple Coronary Arteries using Low Osmolar Contrast (ICD-10-PCS; 2021-01-26)
DX: I21.09 ST elevation (STEMI) myocardial infarction involving other coronary artery of anterior wall (principal); E87.1 Hypo-osmolality and hyponatremia; F10.10 Alcohol abuse, uncomplicated; E11.65 Type 2 diabetes mellitus with hyperglycemia; F17.200 Nicotine dependence, unspecified, uncomplicated; I21.02 ST elevation (STEMI) myocardial infarction involving left anterior descending coronary artery; I10 Essential (primary) hypertension; E78.5 Hyperlipidemia, unspecified; Z20.822 Contact with and (suspected) exposure to COVID-19; Z79.4 Long term (current) use of insulin
CPT/HCPCS: 36415; 71045; 80048; 80061; 80076; 82550; 82553; 82962; 83036; 84484; 84550; 85014; 85018; 85025; 85027; 85049; 85520; 85610; 85730; 86850; 86900; 86901; 92941; 93005; 93306; 93454; 93458; 96374; 96375; 96376; 99406; G0378; A9270-GY; C1760; C1769; C1874; C1887; C1894; C9606; J1644; J1815; J2250; J2405; J3010; J3246; J7030; J7040; Q9967; U0003